=== PATIENT | male | born 1935 | race Caucasian/White ===

== ENCOUNTER 2018-01-05 03:53 | Inpatient (IN) ==
[2018-01-05] MEDS ORDERED: Lidocaine Jelly 6ml 1 APPL/6 ML JEL.PF.APP MM ONE (04:16)
--- NOTE | 2018-01-05 04:46 | Emergency Department Note ---
Disposition Clinical Impression: Acute urinary retention Hematuria Qualifiers: Hematuria type: gross Qualified Code(s): R31.0 - Gross hematuria Disposition: Still a Patient Condition: Good Referrals: Melvin Trujillo DO [Primary Care Provider] - Forms: ED Satisfaction Letter Time of Disposition: 06:59 General Adult HPI - General Chief complaint: ED Urogenital-Male Stated complaint: cant pee Time Seen by Provider: 01/05/18 04:06 Source: patient, family Limitations: no limitations - History of Present Illness HPI Narrative: This is an 82-year-old male who comes to emergency department stating that he was last able to urinate about 11 hours prior to arrival. At that time, the only thing that came out was what appeared to be mostly blood. He was able to produce only a small volume of blood when asked to urinate for sample here. He had one prior episode of hematuria about 3 years ago, but no urinary retention. Pain Scale: 8 - Related Data Home Medications Medication Instructions Recorded Confirmed Aspirin [Lo-Dose Aspirin EC] 81 mg PO DAILY 02/16/16 03/11/16 Atorvastatin [Lipitor] 40 mg PO HS 02/16/16 03/11/16 Clopidogrel [Plavix] 75 mg PO DAILY 02/16/16 03/11/16 Diclofenac Sodium [Voltaren] 75 mg PO DAILY PRN 02/16/16 03/11/16 Fluorouracil [Carac] 30 gm TP BID 02/16/16 03/11/16 Gabapentin [Neurontin] 300 mg PO TID 02/16/16 03/11/16 Lisinopril [Zestril] 10 mg PO DAILY 02/16/16 03/11/16 [place]-3/Dha/Epa/Fish Oil [[place] 3 1 each PO DAILY 02/16/16 03/11/16 500 Softgel] Vit C/Vit E/Lutein/Min/[place]-3 1 each PO DAILY 02/16/16 03/11/16 [Ocuvite Softgel] clonazePAM [Klonopin] 0.5 mg PO BID PRN 02/16/16 03/11/16 Allergies Allergy/AdvReac Type Severity Reaction Status Date / Time ampicillin Allergy Rash Verified 03/11/16 08:01 All systems ED: reviewed and negative except as stated. Genitourinary: Reports: dysuria, hematuria Past Medical History - Past Medical History Medical history: Reports: COPD, coronary artery disease, hyperlipidemia, hypertension, other Surgical history: Reports: angioplasty/stent, herniorrhaphy, orthopedic, other Psychiatric history: Reports: no psych history - Social History Smoking Status: Never smoker Smokeless Tobacco Status: No Alcohol use: Reports: none Drug use: Reports: none Physical Exam - General Limitations: no limitations General appearance: alert, in distress (In moderate distress from abdominal pain and urinary retention) - Head Head exam: atraumatic, normocephalic, normal inspection - Eye Eye exam: Present: normal appearance, PERRL, EOMI - Chest Chest inspection: Present: normal inspection, symmetric chest wall rise - Respiratory Respiratory exam: Present: normal lung sounds bilaterally - Cardiovascular Cardiovascular exam: Present: regular rate, normal rhythm, normal heart sounds - Abdominal Exam Abdominal exam: Present: soft, tenderness (There is mild to moderate suprapubic tenderness). Absent: distention, guarding, rebound, rigidity - Extremities Exam Extremities exam: Present: normal inspection, full ROM. Absent: tenderness, pedal edema - Back Exam Back exam: Absent: CVA tenderness (R), CVA tenderness (L) - Neurological Exam Neurological exam: Present: alert, oriented X3 - Psychiatric Psychiatric exam: Present: normal affect, normal mood - Skin Skin exam: Present: warm, dry, intact, normal color Course Course Narrative: Examined the patient's bladder using bedside ultrasound and measured a bladder volume of 400 mL even though I could not fit the entire bladder on the screen. This is an 82-year-old male who appears to have urinary retention most likely secondary to hematuria. Vital Signs Temperature 97.6 F 01/05/18 03:59 Pulse Rate 81 01/05/18 03:59 Respiratory Rate 12 01/05/18 03:59 Blood Pressure 182/99 01/05/18 03:59 O2 Sat by Pulse Oximetry 99 01/05/18 03:59 Temperature 97.6 F 01/05/18 03:59 Pulse Rate 81 01/05/18 03:59 Respiratory Rate 12 01/05/18 03:59 Blood Pressure 182/99 01/05/18 03:59 O2 Sat by Pulse Oximetry 99 01/05/18 03:59 Oxygen Delivery Oxygen Delivery Room Air Medical Decision Making - [facility] Narrative Medical decision making narrative: This is an 82-year-old male with gross hematuria and urinary retention Nursing placed a Dickerson catheter with release of almost 1 L of darkly bloody urine. Continuous bladder irrigation was set up and run with normal saline. I discussed his case with Dr. Guardado, the on-call urologist, who recommended admission. Patient was signed out to Dr. Monzon at 7 AM - Lab Data Lab results reviewed: Yes I reviewed the patient's lab results. Lab results narrative: CBC was unremarkable BMP showed be human and slightly elevated at 25 UA showed large blood Result diagrams: 01/05/18 05:13 01/05/18 05:13 Lab Results 01/05/18 01/05/18 01/05/18 Range/Units 04:00 05:13 05:13 WBC 4.7 (4.3-11.1) K/mcL RBC 4.36 (4.19-5.50) M/mcL Hgb 14.0 (12.9-16.9) g/dL Hct 41.7 (37.5-50.1) % MCV 95.6 (83.0-100.0) fL MCH 32.1 (28.0-33.3) pg MCHC 33.6 (31.6-35.5) g/dL RDW 12.7 (11.5-14.5) % Plt Count 186 (140-400) K/mcL MPV 10.5 (9.4-12.4) fL Immature Gran % 0.2 (0-4) % Seg Neutrophils % 57.2 % Lymphocytes % 24.7 % Monocytes % 13.1 % Eosinophils % 3.9 % Basophils % 0.9 % Neutrophils # 2.7 (1.6-8.9) K/mcL Lymphocytes # 1.2 (0.6-4.6) K/mcL Monocytes # 0.6 (0.0-1.3) K/mcL Eosinophils # 0.2 (0.0-0.6) K/mcL Basophils # 0.0 (0.0-0.2) K/mcL Sodium 139 (136-145) mEq/L Potassium 4.0 (3.5-5.1) mEq/L Chloride 105 (98-107) mEq/L Carbon Dioxide 25 (23-29) mEq/L BUN 25 H (8-23) mg/dL Creatinine 0.90 (0.70-1.30) mg/dL Est GFR ( Amer) > 60 (> 60) Est GFR (Non-Af Amer) > 60 (> 60) BUN/Creatinine Ratio 28 H (6-26) Glucose 126 H (70-105) mg/dL Calculated Osmolality 294 (280-300) Calcium 9.2 (8.6-10.3) mg/dL Ur Specimen Adequacy PATIENT SVCS MGR Urine Color Red A (Yellow) Urine Clarity Turbid A (Clear) Urine pH 6.5 (5.0-8.0) pH Units Ur Specific [place] < 1.005 L (1.010-1.025) Urine Protein >=300 H (Neg-Trace) mg/dL Urine Glucose (UA) Normal (Normal) mg/dL Urine Ketones Trace H (Negative) mg/dL Urine Blood Large H (Negative) Urine Nitrite Negative (Negative) Urine Bilirubin Negative (Negative) Urine Urobilinogen Normal (Normal) mg/dL Ur Leukocyte Esterase Small H (Negative) Ur Culture Indicated? YES A (NO) Critical Care Time Critical Care Time: No
[2018-01-05 05:00] LABS: Bilirubin,Urine Negative (Negative); Blood,Urine Large (Negative); Color,Urine Red (Yellow); Glucose,Urine (UA) Normal (Normal); Ketones,Urine Trace mg/dL (Negative); Leukocyte Esterase,Urine Small (Negative); Nitrite,Urine Negative (Negative); PH,Urine 6.5 pH Units (5.0-8.0); Protein,Urine >=300 mg/dL (Neg-Trace); Specific Gravity,Urine < 1.005 (1.010-1.025); Urobilinogen,Urine Normal (Normal)
[2018-01-05 05:01] LABS: Clarity,Urine Turbid (Clear)
[2018-01-05 05:38] LABS: Basophils % 0.9 %; Eosinophils # 0.2 K/mcL (0.0-0.6); Eosinophils % 3.9 %; Hematocrit 41.7 % (37.5-50.1); Immature Granulocytes % 0.2 % (0-4); Lymphocytes # 1.2 K/mcL (0.6-4.6); Lymphocytes % 24.7 %; Mean Corpuscular HGB Conc 33.6 g/dL (31.6-35.5); Mean Corpuscular Hemoglobin 32.1 pg (28.0-33.3); Mean Corpuscular Volume 95.6 fL (83.0-100.0); Mean Platelet Volume 10.5 fL (9.4-12.4); Monocytes # 0.6 K/mcL (0.0-1.3); Monocytes % 13.1 %; Neutrophils # 2.7 K/mcL (1.6-8.9); Platelet Count 186 K/mcL (140-400); Red Blood Count 4.36 M/mcL (4.19-5.50); Red Cell Distribution Width 12.7 % (11.5-14.5); Segmented Neutrophils % 57.2 %
[2018-01-05 05:55] LABS: BUN/Creatinine Ratio 28 (6-26); Blood Urea Nitrogen 25 mg/dL (8-23); Calcium 9.2 mg/dL (8.6-10.3); Carbon Dioxide 25 mEq/L (23-29); Chloride 105 mEq/L (98-107); Glucose 126 mg/dL (70-105); Osmolality,Calculated 294 (280-300); Sodium 139 mEq/L (136-145); eGFR For Non-African Americans > 60 (> 60)
--- NOTE | 2018-01-05 07:27 | Emergency Department Note ---
Disposition Clinical Impression: Acute urinary retention Hematuria Qualifiers: Hematuria type: gross Qualified Code(s): R31.0 - Gross hematuria Disposition: Admitted As Inpatient Condition: Good Referrals: Melvin Trujillo DO [Primary Care Provider] - Forms: ED Satisfaction Letter General Adult HPI - General Chief complaint: ED Urogenital-Male Stated complaint: cant pee Time Seen by Provider: 01/05/18 04:06 Source: patient, family Limitations: no limitations - History of Present Illness Pain Scale: 8 - Related Data Home Medications Medication Instructions Recorded Confirmed Aspirin [Lo-Dose Aspirin EC] 81 mg PO DAILY 02/16/16 03/11/16 Atorvastatin [Lipitor] 40 mg PO HS 02/16/16 03/11/16 Clopidogrel [Plavix] 75 mg PO DAILY 02/16/16 03/11/16 Diclofenac Sodium [Voltaren] 75 mg PO DAILY PRN 02/16/16 03/11/16 Fluorouracil [Carac] 30 gm TP BID 02/16/16 03/11/16 Gabapentin [Neurontin] 300 mg PO TID 02/16/16 03/11/16 Lisinopril [Zestril] 10 mg PO DAILY 02/16/16 03/11/16 [place]-3/Dha/Epa/Fish Oil [[place] 3 1 each PO DAILY 02/16/16 03/11/16 500 Softgel] Vit C/Vit E/[place]utein/Min/[place]-3 1 each PO DAILY 02/16/16 03/11/16 [Ocuvite Softgel] clonazePAM [Klonopin] 0.5 mg PO BID PRN 02/16/16 03/11/16 Allergies Allergy/AdvReac Type Severity Reaction Status Date / Time ampicillin Allergy Rash Verified 03/11/16 08:01 Genitourinary: Reports: dysuria, hematuria Past Medical History - Past Medical History Medical history: Reports: COPD, coronary artery disease, hyperlipidemia, hypertension, other Surgical history: Reports: angioplasty/stent, herniorrhaphy, orthopedic, other Psychiatric history: Reports: no psych history - Social History Smoking Status: Never smoker Smokeless Tobacco Status: No Alcohol use: Reports: none Drug use: Reports: none Physical Exam - General Limitations: no limitations General appearance: alert, in distress (In moderate distress from abdominal pain and urinary retention) Course Course Narrative: Patient signed out from day shift team. Please see their documentation for details. In brief 82-year-old male who presents with acute urinary retention in the setting of hematuria. This is happened once to come in the past a few years ago. He is on Plavix for cardiac stents. The patient was found to be retained here was 400 mL. He had reportedly 1 L of grossly bloody urine once Dickerson was placed. Labs are unremarkable. Urinalysis stable. Case discussed with urology. Plan to admit. Vital Signs Temperature 97.6 F 01/05/18 03:59 Pulse Rate 81 01/05/18 03:59 Respiratory Rate 12 01/05/18 03:59 Blood Pressure 182/99 01/05/18 03:59 O2 Sat by Pulse Oximetry 99 01/05/18 03:59 Temperature 97.6 F 01/05/18 03:59 Pulse Rate 81 01/05/18 03:59 Respiratory Rate 12 01/05/18 03:59 Blood Pressure 182/99 01/05/18 03:59 O2 Sat by Pulse Oximetry 99 01/05/18 03:59 Oxygen Delivery Oxygen Delivery Room Air Medical Decision Making - Lab Data Lab results reviewed: Yes I reviewed the patient's lab results. Result diagrams: 01/05/18 05:13 01/05/18 05:13 Lab Results 01/05/18 01/05/18 01/05/18 Range/Units 04:00 05:13 05:13 WBC 4.7 (4.3-11.1) K/mcL RBC 4.36 (4.19-5.50) M/mcL Hgb 14.0 (12.9-16.9) g/dL Hct 41.7 (37.5-50.1) % MCV 95.6 (83.0-100.0) fL MCH 32.1 (28.0-33.3) pg MCHC 33.6 (31.6-35.5) g/dL RDW 12.7 (11.5-14.5) % Plt Count 186 (140-400) K/mcL MPV 10.5 (9.4-12.4) fL Immature Gran % 0.2 (0-4) % Seg Neutrophils % 57.2 % Lymphocytes % 24.7 % Monocytes % 13.1 % Eosinophils % 3.9 % Basophils % 0.9 % Neutrophils # 2.7 (1.6-8.9) K/mcL Lymphocytes # 1.2 (0.6-4.6) K/mcL Monocytes # 0.6 (0.0-1.3) K/mcL Eosinophils # 0.2 (0.0-0.6) K/mcL Basophils # 0.0 (0.0-0.2) K/mcL Sodium 139 (136-145) mEq/L Potassium 4.0 (3.5-5.1) mEq/L Chloride 105 (98-107) mEq/L Carbon Dioxide 25 (23-29) mEq/L BUN 25 H (8-23) mg/dL Creatinine 0.90 (0.70-1.30) mg/dL Est GFR ( Amer) > 60 (> 60) Est GFR (Non-Af Amer) > 60 (> 60) BUN/Creatinine Ratio 28 H (6-26) Glucose 126 H (70-105) mg/dL Calculated Osmolality 294 (280-300) Calcium 9.2 (8.6-10.3) mg/dL Ur Specimen Adequacy NURSES SUPERINTENDENT Urine Color Red A (Yellow) Urine Clarity Turbid A (Clear) Urine pH 6.5 (5.0-8.0) pH Units Ur Specific [place] < 1.005 L (1.010-1.025) Urine Protein >=300 H (Neg-Trace) mg/dL Urine Glucose (UA) Normal (Normal) mg/dL Urine Ketones Trace H (Negative) mg/dL Urine Blood Large H (Negative) Urine Nitrite Negative (Negative) Urine Bilirubin Negative (Negative) Urine Urobilinogen Normal (Normal) mg/dL Ur Leukocyte Esterase Small H (Negative) Ur Culture Indicated? YES A (NO) Jj - Jj Situation: Demographics, MOA Background: Presenting Complaint, Relevant PMH, Meds, & Allergies Assessment: Course and respsone to treatment, Exam Concerns, Patient/Family Expectation, Pertinant Lab Results Recommendation: Barrier(s) to disposition, Recommendation based on pending studies, treatments, or consults S.B.APretty Report Given to: Dr. Deric Gardner Repor Time: 07:34
--- NOTE | 2018-01-05 07:31 | Emergency Department Note ---
Disposition Clinical Impression: Acute urinary retention Hematuria Qualifiers: Hematuria type: gross Qualified Code(s): R31.0 - Gross hematuria Disposition: Still a Patient Condition: Good Referrals: Melvin Trujillo DO [Primary Care Provider] - Forms: ED Satisfaction Letter General Adult HPI - General Chief complaint: ED Urogenital-Male Stated complaint: cant pee Time Seen by Provider: 01/05/18 04:06 Source: patient, family Limitations: no limitations - History of Present Illness Pain Scale: 8 - Related Data Home Medications Medication Instructions Recorded Confirmed Aspirin [Lo-Dose Aspirin EC] 81 mg PO DAILY 02/16/16 03/11/16 Atorvastatin [Lipitor] 40 mg PO HS 02/16/16 03/11/16 Clopidogrel [Plavix] 75 mg PO DAILY 02/16/16 03/11/16 Diclofenac Sodium [Voltaren] 75 mg PO DAILY PRN 02/16/16 03/11/16 Fluorouracil [Carac] 30 gm TP BID 02/16/16 03/11/16 Gabapentin [Neurontin] 300 mg PO TID 02/16/16 03/11/16 Lisinopril [Zestril] 10 mg PO DAILY 02/16/16 03/11/16 [place]-3/Dha/Epa/Fish Oil [[place] 3 1 each PO DAILY 02/16/16 03/11/16 500 Softgel] Vit C/Vit E/Lutein/Min/[place]-3 1 each PO DAILY 02/16/16 03/11/16 [Ocuvite Softgel] clonazePAM [Klonopin] 0.5 mg PO BID PRN 02/16/16 03/11/16 Allergies Allergy/AdvReac Type Severity Reaction Status Date / Time ampicillin Allergy Rash Verified 03/11/16 08:01 Genitourinary: Reports: dysuria, hematuria Past Medical History - Past Medical History Medical history: Reports: COPD, coronary artery disease, hyperlipidemia, hypertension, other Surgical history: Reports: angioplasty/stent, herniorrhaphy, orthopedic, other Psychiatric history: Reports: no psych history - Social History Smoking Status: Never smoker Smokeless Tobacco Status: No Alcohol use: Reports: none Drug use: Reports: none Physical Exam - General Limitations: no limitations General appearance: alert, in distress (In moderate distress from abdominal pain and urinary retention) Course Vital Signs Temperature 97.6 F 01/05/18 03:59 Pulse Rate 81 01/05/18 03:59 Respiratory Rate 12 01/05/18 03:59 Blood Pressure 182/99 01/05/18 03:59 O2 Sat by Pulse Oximetry 99 01/05/18 03:59 Temperature 97.6 F 01/05/18 03:59 Pulse Rate 81 01/05/18 03:59 Respiratory Rate 12 01/05/18 03:59 Blood Pressure 182/99 01/05/18 03:59 O2 Sat by Pulse Oximetry 99 01/05/18 03:59 Oxygen Delivery Oxygen Delivery Room Air Medical Decision Making - Lab Data Result diagrams: 01/05/18 05:13 01/05/18 05:13 Lab Results 01/05/18 01/05/18 01/05/18 Range/Units 04:00 05:13 05:13 WBC 4.7 (4.3-11.1) K/mcL RBC 4.36 (4.19-5.50) M/mcL Hgb 14.0 (12.9-16.9) g/dL Hct 41.7 (37.5-50.1) % MCV 95.6 (83.0-100.0) fL MCH 32.1 (28.0-33.3) pg MCHC 33.6 (31.6-35.5) g/dL RDW 12.7 (11.5-14.5) % Plt Count 186 (140-400) K/mcL MPV 10.5 (9.4-12.4) fL Immature Gran % 0.2 (0-4) % Seg Neutrophils % 57.2 % Lymphocytes % 24.7 % Monocytes % 13.1 % Eosinophils % 3.9 % Basophils % 0.9 % Neutrophils # 2.7 (1.6-8.9) K/mcL Lymphocytes # 1.2 (0.6-4.6) K/mcL Monocytes # 0.6 (0.0-1.3) K/mcL Eosinophils # 0.2 (0.0-0.6) K/mcL Basophils # 0.0 (0.0-0.2) K/mcL Sodium 139 (136-145) mEq/L Potassium 4.0 (3.5-5.1) mEq/L Chloride 105 (98-107) mEq/L Carbon Dioxide 25 (23-29) mEq/L BUN 25 H (8-23) mg/dL Creatinine 0.90 (0.70-1.30) mg/dL Est GFR ( Amer) > 60 (> 60) Est GFR (Non-Af Amer) > 60 (> 60) BUN/Creatinine Ratio 28 H (6-26) Glucose 126 H (70-105) mg/dL Calculated Osmolality 294 (280-300) Calcium 9.2 (8.6-10.3) mg/dL Ur Specimen Adequacy RN RECOVERY Urine Color Red A (Yellow) Urine Clarity Turbid A (Clear) Urine pH 6.5 (5.0-8.0) pH Units Ur Specific [place] < 1.005 L (1.010-1.025) Urine Protein >=300 H (Neg-Trace) mg/dL Urine Glucose (UA) Normal (Normal) mg/dL Urine Ketones Trace H (Negative) mg/dL Urine Blood Large H (Negative) Urine Nitrite Negative (Negative) Urine Bilirubin Negative (Negative) Urine Urobilinogen Normal (Normal) mg/dL Ur Leukocyte Esterase Small H (Negative) Ur Culture Indicated? YES A (NO) Attestation Statement - Attestation Attestation: Care assumed from Dr. singh at 7 AM pending admission to the medicine service. Dr. singh had previously spoken with urology on-call due to gross hematuria. The patient received continuous bladder irrigation. Gross hematuria identified on exam. Labs reviewed by me. Patient appears in no acute distress
--- NOTE | 2018-01-05 09:39 | Internal Med History&Physical ---
Date of Encounter: 01/05/18 Time of Encounter: 09:20 Internal Medicine - H&P: HPI Chief complaint: Hematuria Admitted From: Emergency Dept Plans for Post Hospital Care: Home History of present illness: Mr. Mao is a 82 year old male patient with a history of BPH, prior kidney stones, coronary artery disease status post stents on aspirin and Plavix presented to the ER with complaints of hematuria. Patient reports that the symptoms started yesterday. He had blood in his urine and this morning he was unable to be so he came to the ER. A Dickerson catheter was placed in the ER and since then patient has had ced blood in his urine. He reports that he did have some pain and dysuria on the days prior to onset of hematuria. He denies any abdominal pain. No nausea or vomiting. No recent urologic procedure. No fevers or chills. No dizziness or lightheadedness. Past Med Surg Social Fam HX - Past Medical History Medical history: COPD, coronary artery disease, hyperlipidemia, hypertension, other Additional medical history: Irregular heartbeat, kidney stones Psychiatric history: no psych history - Past Surgical History Surgical History: angioplasty/stent, herniorrhaphy, orthopedic, other - Social History Smoking Status: Never smoker Smokeless Tobacco Status: No Alcohol use: none Drug use: none - Additional Family History Additional family history: Family history reviewed and found to be noncontributory at this time Internal Medicine - H&P: Meds Aspirin [Lo-Dose Aspirin EC] 81 mg PO DAILY 02/16/16 [History] Clopidogrel [Plavix] 75 mg PO DAILY 02/16/16 [History] Diclofenac Sodium [Voltaren] 75 mg PO BID PRN 02/16/16 [History] Fluorouracil [Carac] 30 gm TP BID 02/16/16 [History] Gabapentin [Neurontin] 300 mg PO TID 02/16/16 [History] Lisinopril [Zestril] 20 mg PO DAILY 02/16/16 [History] [place]-3/Dha/Epa/Fish Oil [[place] 3 500 Softgel] 1 each PO DAILY 02/16/16 [History ] Vit C/Vit E/Lutein/Min/[place]-3 [Ocuvite Softgel] 1 each PO DAILY 02/16/16 [ History] Atorvastatin Calcium [Lipitor] 20 mg PO DAILY 01/05/18 [History] Cyclobenzaprine HCl 5 mg PO TID PRN 01/05/18 [History] Silodosin [Rapaflo] 8 mg PO DAILY 01/05/18 [History] Testosterone [Androgel] 01/05/18 [History] 3 Allergy/AdvReac Type Severity Reaction Status Date / Time ampicillin Allergy Rash Verified 01/05/18 07:44 All Systems PM: A 10-system review of systems was performed and is negative for pertinent findings except as documented above in the HPI. - Constitutional Constitutional: no chills, no fever(s), no night sweats - EENT Eyes: no change in vision, no discharge, no pain, no photophobia Ears: no ear discharge, no ear pain, no tinnitus Nose, mouth and throat: no dysphagia, no nasal discharge, no neck pain, no sore throat - Cardiovascular Cardiovascular ROS IM: no chest pain, no diaphoresis, no dyspnea, no lightheadedness, no palpitations, no syncope - Respiratory Respiratory: no cough, no dyspnea, no wheezing, no excessive phlegm production - Gastrointestinal Gastrointestinal: no abdominal pain, no diarrhea, no hematemesis, no hematochezia, no melena, no nausea, no vomiting - Genitourinary Genitourinary ROS male: difficulty urinating, hematuria, urinary hesitancy - Musculoskeletal Musculoskeletal ROS IM: no numbness, no tingling - Integumentary Integumentary IM: no rash, no unusual bruising - Neurological Neurological ROS: no confusion, no convulsions, no focal weakness, no numbness, no tingling, no tremor(s) - Hematologic/Lymphatic Hematologic/Lymphatic: no easy bruising - Constitutional Vitals: Temp Pulse Resp BP Pulse Ox 97.7 F 81 16 161/90 95 01/05/18 09:24 01/05/18 09:24 01/05/18 09:24 01/05/18 09:24 01/05/18 09:24 General appearance: Present: cooperative, A&O X 3, pleasant, answers questions appropriately Exam: General: Patient is alert, no acute distress, oriented x 3 Head: atraumatic, normocephalic, Eye: normal appearance, PERRL, no scleral icterus, no conjunctival injection Neck: normal inspection, trachea midline, full ROM, no carotid bruits Chest: normal inspection, symmetric chest rise Respiratory: Good respiratory effort. Normal breath sounds. No wheezing or crackles. Cardiovascular: Regular rate and rhythm. s1 and s2 normal No clicks, rubs, gallops, or murmurs. No pedal edema Abdomen: Abdomen is soft, nontender. Bowel sounds are present, Dickerson catheter in place Musculoskeletal: Spontaneously moving all extremities Skin: warm, dry, intact. Neuro: Alert oriented x 3 normal cranial nerves, no focal deficits Psych: Patient's affect is normal Internal Med - H&P Results - Labs CBC & Chem 7: 01/05/18 05:13 01/05/18 05:13 - Assessment and plan (1) Hematuria Current Visit: Yes Status: Acute Assessment and plan: Patient with gross hematuria. Urology consult in place. Dickerson catheter in place. Bladder irrigation started. Monitor hemoglobin levels. We will hold aspirin and Plavix for now. Avoid medical anticoagulation. Moderate risk for complications. Qualifiers: Hematuria type: gross Qualified Code(s): R31.0 - Gross hematuria (2) Acute urinary retention Current Visit: Yes Status: Acute Assessment and plan: Likely due to blood clots from hematuria. Now resolved after placement of Dickerson catheter. Urology consult in progress. (3) Coronary artery disease Current Visit: Yes Status: Chronic Assessment and plan: Patient takes aspirin, Plavix and statin. We will hold aspirin and Plavix for now due to acute bleed. Once bleeding improves, may resume his medications. Qualifiers: Coronary Disease-Associated Artery/Lesion type: [place] artery [place] vs. transplanted heart: [place] heart Associated angina: without angina Qualified Code(s): I25.10 - Atherosclerotic heart disease of [place] coronary artery without angina pectoris - Time Spent With Patient Total time spent is greater than 50% in coordination of care (as documented) at patient's floor/unit and/or counseling patient:
[2018-01-05] MEDS ORDERED: Naloxone 0.4 MG/ML INJ IVP PRN (09:42)
--- NOTE | 2018-01-05 10:23 | Urology - Consult Note ---
Date of Encounter: 01/05/18 Time of Encounter: 10:22 - Assessment and Plan (1) Acute urinary retention Current Visit: Yes Status: Acute Assessment and plan: 82-year-old man with gross hematuria and clot retention is seen in consultation. He has an 18 Norwegian 3-way catheter. He is on irrigation and his urine is clearing. We will try to wean off the irrigation and see if his urine remains clear. He may require hand irrigation. If bleeding does not resolve or he develops recurrent clots, he may require a cystoscopy in the operating room with clot evacuation and fulguration. I will give him a trial of conservative management. We will see if his urine clears with just irrigation alone and try to hold the Plavix. Urology will follow along. (2) Hematuria Current Visit: Yes Status: Acute Qualifiers: Hematuria type: gross Qualified Code(s): R31.0 - Gross hematuria Urology CN:HPI Consult date: 01/05/18 Reason for consult Urology: Gross Hematuria History of present illness: 82-year-old man presents with concern for gross hematuria. This started yesterday. He had difficulty voiding with some blood clots. He had further trouble urinating was not able to empty at all. He came to the emergency department. He was having suprapubic pain which was dull and radiated to the penis. A Dickerson catheter was placed. Bloody urine returned. He was started on bladder irrigation and was admitted. He reports that he had a greenlight laser photo vaporization of the prostate. This was done about 8-10 years ago. He also has a penile implant. He denies any family history of prostate cancer. He has a history of cardiac stents and takes aspirin as well as Plavix. He reports that he is having some constipation and has been having to strain to move his bowels. Past Med Surg Social Fam HX - Past Medical History Medical history: COPD, coronary artery disease, hyperlipidemia, hypertension, other Additional medical history: Irregular heartbeat, kidney stones Psychiatric history: no psych history - Past Surgical History Surgical History: angioplasty/stent, herniorrhaphy, orthopedic, other - Social History Smoking Status: Never smoker Smokeless Tobacco Status: No Alcohol use: none Drug use: none - Family History Father Hx Family Genitourinary Disorders: No (No prostate cancer.) Medications and Allergies Aspirin [Lo-Dose Aspirin EC] 81 mg PO DAILY 11/15/16 [History] Clopidogrel [Plavix] 75 mg PO DAILY 02/16/16 [History] Diclofenac Sodium [Voltaren] 75 mg PO BID PRN 02/16/16 [History] Fluorouracil [Carac] 30 gm TP BID 02/16/16 [History] Gabapentin [Neurontin] 300 mg PO TID 02/16/16 [History] Lisinopril [Zestril] 20 mg PO DAILY 02/16/16 [History] [place]-3/Dha/Epa/Fish Oil [[place] 3 500 Softgel] 1 each PO DAILY 02/16/16 [History ] Vit C/Vit E/Lutein/Min/[place]-3 [Ocuvite Softgel] 1 each PO DAILY 02/16/16 [ History] Atorvastatin Calcium [Lipitor] 20 mg PO DAILY 01/05/18 [History] Cyclobenzaprine HCl 5 mg PO TID PRN 01/05/18 [History] Silodosin [Rapaflo] 8 mg PO DAILY 01/05/18 [History] Testosterone [Androgel] 2 pump TD DAILY 01/05/18 [History] 3 Allergy/AdvReac Type Severity Reaction Status Date / Time ampicillin Allergy Rash Verified 01/05/18 07:44 Review of Systems - Constitutional no chills, no fever(s) - EENT Nose, mouth and throat: no dizziness - Cardiovascular no chest pain - Respiratory no dyspnea - Gastrointestinal no nausea, no vomiting - Genitourinary hematuria, no flank pain - Musculoskeletal no back pain - Integumentary no erythema, no rash - Neurological no weakness - Psychiatric no suicidal ideation - Hematologic/Lymphatic no easy bleeding - Allergic/Immunologic no wheezing Exam Initial Vital Signs Temp Pulse Resp BP Pulse Ox 97.6 F 81 12 182/99 99 01/05/18 03:59 01/05/18 03:59 01/05/18 03:59 01/05/18 03:59 01/05/18 03:59 - General physical appearance Present: well developed, well nourished, no distress - Eyes Absent: icteric - ENT Present: normal nares - Neck Present: trachea midline - Respiratory Present: normal respiratory effort - Cardiovascular Cardiovascular exam IM: RRR - Abdomen Abdomen: Present: soft - Genitourinary normal penis with no external lesions, other ([address] Irrigation is running fast with clear to light pink urine) - Integumentary Present: no rash - Neurologic Present: normal coordination - Musculoskeletal Present: normal gait Urology Results - Labs 01/05/18 05:13 01/05/18 05:13 Abnormal lab results BUN 25 mg/dL (8-23) H 01/05/18 05:13 BUN/Creatinine Ratio 28 (6-26) H 01/05/18 05:13 Glucose 126 mg/dL (70-105) H 01/05/18 05:13 Urine Color Red (Yellow) A 01/05/18 04:00 Urine Clarity Turbid (Clear) A 01/05/18 04:00 Ur Specific [place] < 1.005 (1.010-1.025) L 01/05/18 04:00 Urine Protein >=300 mg/dL (Neg-Trace) H 01/05/18 04:00 Urine Ketones Trace mg/dL (Negative) H 01/05/18 04:00 Urine Blood Large (Negative) H 01/05/18 04:00 Ur Leukocyte Esterase Small (Negative) H 01/05/18 04:00 Ur Culture Indicated? YES (NO) A 01/05/18 04:00 All other labs normal. Consult Discharge Plan - Plan Referrals: Melvin Trujillo DO [Primary Care Provider] -
[2018-01-05] MEDS: FLUOROURACIL 30 GM TP SCH ×2 (12:25→22:17)
[2018-01-05] MEDS: Lisinopril 20 MG TABLET PO SCH ×2 (12:25→15:35)
[2018-01-05] MEDS: Gabapentin 300 MG CAPSULE PO SCH ×4 (12:25→20:29)
[2018-01-05] MEDS: EPA PO SCH (12:27)
[2018-01-05] MEDS: DHA PO SCH (12:27)
[2018-01-05] MEDS: FISH OIL PO SCH (12:27)
[2018-01-05] MEDS: OMEGA PO SCH (12:27)
[2018-01-05] MEDS: Diclofenac Sodium 75 MG TABLET PO PRN (15:42)
[2018-01-06] MEDS: Diclofenac Sodium 75 MG TABLET PO PRN (00:14)
[2018-01-06 05:16] LABS: Basophils % 0.6 %; Eosinophils # 0.1 K/mcL (0.0-0.6); Eosinophils % 2.1 %; Hematocrit 41.3 % (37.5-50.1); Hemoglobin 13.7 g/dL (12.9-16.9); Immature Granulocytes % 0.3 % (0-4); Lymphocytes # 1.1 K/mcL (0.6-4.6); Lymphocytes % 17.9 %; Mean Corpuscular HGB Conc 33.2 g/dL (31.6-35.5); Mean Corpuscular Volume 96.5 fL (83.0-100.0); Mean Platelet Volume 10.6 fL (9.4-12.4); Monocytes # 0.7 K/mcL (0.0-1.3); Monocytes % 10.5 %; Neutrophils # 4.3 K/mcL (1.6-8.9); Platelet Count 171 K/mcL (140-400); Red Blood Count 4.28 M/mcL (4.19-5.50); Segmented Neutrophils % 68.6 %
[2018-01-06 05:32] LABS: BUN/Creatinine Ratio 21 (6-26); Blood Urea Nitrogen 21 mg/dL (8-23); Calcium 9.1 mg/dL (8.6-10.3); Carbon Dioxide 28 mEq/L (23-29); Chloride 107 mEq/L (98-107); Glucose 135 mg/dL (70-105); Osmolality,Calculated 295 (280-300); Sodium 140 mEq/L (136-145); eGFR For Non-African Americans > 60 (> 60)
--- NOTE | 2018-01-06 07:59 | Anesthesia Evaluation PreOp ---
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 HX Other Medical History: Other (HO BPH POST GREENLIGHT LIGHT VAPOIZATION 10 YRS AGO) Anesthesia History: No Prior Anesthetic Complications, Past Anesthesia (HERNIA, ORTHO) Alcohol Use: none Drug use: none Medications and Allergies Aspirin [Lo-Dose Aspirin EC] 81 mg PO DAILY 02/16/16 [History] Clopidogrel [Plavix] 75 mg PO DAILY 02/16/16 [History] Diclofenac Sodium [Voltaren] 75 mg PO BID PRN 02/16/16 [History] Fluorouracil [Carac] 30 gm TP BID 02/16/16 [History] Gabapentin [Neurontin] 300 mg PO TID 02/16/16 [History] Lisinopril [Zestril] 20 mg PO DAILY 02/16/16 [History] [place]-3/Dha/Epa/Fish Oil [[place] 3 500 Softgel] 1 each PO DAILY 02/16/16 [History ] Vit C/Vit E/Lutein/Min/[place]-3 [Ocuvite Softgel] 1 each PO DAILY 02/16/16 [ History] Atorvastatin Calcium [Lipitor] 20 mg PO DAILY 01/05/18 [History] Cyclobenzaprine HCl 5 mg PO TID PRN 01/05/18 [History] Silodosin [Rapaflo] 8 mg PO DAILY 01/05/18 [History] Testosterone [Androgel] 2 pump TD DAILY 01/05/18 [History] 3 Allergy/AdvReac Type Severity Reaction Status Date / Time ampicillin Allergy Rash Verified 01/05/18 07:44 - Meds/Allergy Pre-op Review Medications Reviewed: Yes Allergies Reviewed: Yes Beta Blockers on Current Med List: No Anesthesia Results - Labs 01/06/18 04:59 01/06/18 04:59 Laboratory Last Values WBC 6.3 K/mcL (4.3-11.1) 01/06/18 04:59 RBC 4.28 M/mcL (4.19-5.50) 01/06/18 04:59 Hgb 13.7 g/dL (12.9-16.9) 01/06/18 04:59 Hct 41.3 % (37.5-50.1) 01/06/18 04:59 MCV 96.5 fL (83.0-100.0) 01/06/18 04:59 MCH 32.0 pg (28.0-33.3) 01/06/18 04:59 MCHC 33.2 g/dL (31.6-35.5) 01/06/18 04:59 RDW 13.0 % (11.5-14.5) 01/06/18 04:59 Plt Count 171 K/mcL (140-400) 01/06/18 04:59 MPV 10.6 fL (9.4-12.4) 01/06/18 04:59 Immature Gran % 0.3 % (0-4) 01/06/18 04:59 Seg Neutrophils % 68.6 % 01/06/18 04:59 Lymphocytes % 17.9 % 01/06/18 04:59 Monocytes % 10.5 % 01/06/18 04:59 Eosinophils % 2.1 % 01/06/18 04:59 Basophils % 0.6 % 01/06/18 04:59 Neutrophils # 4.3 K/mcL (1.6-8.9) 01/06/18 04:59 Lymphocytes # 1.1 K/mcL (0.6-4.6) 01/06/18 04:59 Monocytes # 0.7 K/mcL (0.0-1.3) 01/06/18 04:59 Eosinophils # 0.1 K/mcL (0.0-0.6) 01/06/18 04:59 Basophils # 0.0 K/mcL (0.0-0.2) 01/06/18 04:59 PT 11.0 Seconds (9.4-12.1) 01/05/18 07:33 INR 1.0 01/05/18 07:33 Sodium 140 mEq/L (136-145) 01/06/18 04:59 Potassium 4.0 mEq/L (3.5-5.1) 01/06/18 04:59 Chloride 107 mEq/L (98-107) 01/06/18 04:59 Carbon Dioxide 28 mEq/L (23-29) 01/06/18 04:59 BUN 21 mg/dL (8-23) 01/06/18 04:59 Creatinine 1.02 mg/dL (0.70-1.30) 01/06/18 04:59 Est GFR ( Amer) > 60 (> 60) 01/06/18 04:59 Est GFR (Non-Af Amer) > 60 (> 60) 01/06/18 04:59 BUN/Creatinine Ratio 21 (6-26) 01/06/18 04:59 Glucose 135 mg/dL (70-105) H 01/06/18 04:59 Calculated Osmolality 295 (280-300) 01/06/18 04:59 Calcium 9.1 mg/dL (8.6-10.3) 01/06/18 04:59 Ur Specimen Adequacy COMPUTER SECURITY SPECIALIST 01/05/18 04:00 Urine Color Red (Yellow) A 01/05/18 04:00 Urine Clarity Turbid (Clear) A 01/05/18 04:00 Urine pH 6.5 pH Units (5.0-8.0) 01/05/18 04:00 Ur Specific [place] < 1.005 (1.010-1.025) L 01/05/18 04:00 Urine Protein >=300 mg/dL (Neg-Trace) H 01/05/18 04:00 Urine Glucose (UA) Normal mg/dL (Normal) 01/05/18 04:00 Urine Ketones Trace mg/dL (Negative) H 01/05/18 04:00 Urine Blood Large (Negative) H 01/05/18 04:00 Urine Nitrite Negative (Negative) 01/05/18 04:00 Urine Bilirubin Negative (Negative) 01/05/18 04:00 Urine Urobilinogen Normal mg/dL (Normal) 01/05/18 04:00 Ur Leukocyte Esterase Small (Negative) H 01/05/18 04:00 Ur Culture Indicated? YES (NO) A 01/05/18 04:00 Blood Type A POSITIVE 01/05/18 07:33 Antibody Screen NEGATIVE 01/05/18 07:33 - Imaging EKG: pending Additional studies: STRESS TEST 01/2015: Gated EF = 73%. There is a moderate intensity, partially reversible inferior defect possibly due to ischemia. [facility] 01/2015: Impressions: Single vessel coronary artery disease. Previously stented RCA patent. The left ventricle is normal and has normal contractility EF 65% LV Ventriculography Ejection Method: LV Gram Ejection Fraction: 65% Wall Motion: BARRY Anterobasal Normal Anterolateral Normal Apical: Normal Inferoapical Normal Inferobasal Normal Coronary Dominance: right Lesion Findings/Interventions * Left Main Coronary Artery There is a 20% stenosis in the LMCA. The lesion has a MUNIR flow of 3. * Left Anterior Descending There is a 25% stenosis in the Proximal LAD. The lesion has a MUNIR flow of 3 and has severe calcification noted. * Circumflex There is a 20% stenosis in the Proximal Circumflex. The lesion has a MUNIR flow of 3. * Right Coronary Artery The Mid RCA has patent stents present from a previous procedure. There is a 40% stenosis in the Proximal RCA. The lesion has a MUNIR flow of 3. There is a 20% in stent stenosis in the Mid RCA. The lesion has a UMNIR flow of 3. There is a 20% stenosis in the Distal RCA. The lesion has a MUNIR flow of 3. Anesthesia Exam Vital Signs/O2 Sat, Most Current Temp Pulse Resp BP Pulse Ox 97.7 F 82 16 130/82 92 01/06/18 07:51 01/06/18 07:51 01/06/18 07:51 01/06/18 07:51 01/06/18 07:51 HEIGHT 1.75 m WEIGHT 79 kg BMI 26 - HEENT Mallampati: II Teeth: Missing - Cardiac Rhythm: Regular - Pulmonary Breath Sounds: bilateral Clear Respiratory Effort: Symmetrical - Additional Findings INPATIENTActive Medications Atorvastatin Calcium (Lipitor) 20 mg PO DAILY [facility] Stop: 07/07/18 12:16 Last Admin: 01/05/18 15:34 Dose: Not Given Cyclobenzaprine HCl (Flexeril) 5 mg PO TID PRN PRN Reason: Muscle Pain Last Admin: 01/06/18 00:14 Dose: 5 mg Diclofenac Sodium (Voltaren) 75 mg PO BID PRN PRN Reason: Pain Stop: 07/07/18 09:45 Last Admin: 01/06/18 00:14 Dose: 75 mg Gabapentin (Neurontin) 300 mg PO TID [facility] Stop: 07/07/18 12:16 Last Admin: 01/05/18 20:29 Dose: 300 mg Levofloxacin/Dextrose (Levaquin Premix 500mg/100ml) 500 mg in 100 mls @ 100 mls /hr IVPB Q24H KAREN PRN Reason: Protocol Stop: 07/08/18 08:01 Lisinopril (Zestril) 20 mg PO DAILY KAREN PRN Reason: Protocol Stop: 07/07/18 12:16 Last Admin: 01/05/18 15:35 Dose: Not Given Naloxone HCl (Narcan) 0.4 mg IVP Q2MIN PRN PRN Reason: SEE COMMENTS Stop: 07/07/18 09:43 Pharmacy Profile Note (Patient Taking Own Medication) 0 each TP BID [facility] Stop: 07/07/18 21:01 Last Admin: 01/05/18 22:17 Dose: Not Given Pharmacy Profile Note (Patient Taking Own Medication) 0 each PO DAILY [facility] Stop: 07/08/18 09:01 Last Admin: 01/05/18 12:27 Dose: Not Given Tamsulosin HCl (Flomax) 0.4 mg PO DAILY [facility] Stop: 07/07/18 12:16 Last Admin: 01/05/18 15:34 Dose: Not Given Anesthesia Assess/Plan ASA Score: 3 Modified Prakash Scale for Level of Consciousness: Cooperative, oriented, and tranquil Anesthetic Plan: General Monitoring Plan: Standard Monitors Recovery Plan: PACU Anes Supervising Prov Stmt: Patient informed and consented. Risks, benefits, and alternatives discussed. Patient wishes to proceed.
[2018-01-06] MEDS ORDERED: Levofloxacin 500 MG/100 ML 500 MG/100 ML BAG IVPB SCH (08:00)
--- NOTE | 2018-01-06 08:04 | Urology Progress Note ---
Date of Encounter: 01/06/18 Time of Encounter: 08:01 - Assessment and Plan (1) Acute urinary retention Current Visit: Yes Status: Acute (2) Hematuria Current Visit: Yes Status: Acute Assessment and plan: 82-year-old man with a history of gross hematuria. We discussed options with him today. I offered to increase the size of his three-way catheter to better irrigate his bladder. He is concerned about his ability to tolerate this while awake. 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 He would prefer to go the nonoperative approach. He was informed of the risks of the surgery which include but are not limited to bleeding, infection, injury to other structures, need for further procedures, and the risk of anesthesia. He is willing to proceed. Qualifiers: Hematuria type: gross Qualified Code(s): R31.0 - Gross hematuria Progress Note Narrative: 82-year-old man with gross hematuria. Urine is still bloody overnight. He has an 18-Swedish three-way catheter and this does not irrigate well. We discussed increasing the size of the Dickerson, but he is having some significant discomfort associated with the catheter. Objective Initial Vital Signs Temp Pulse Resp BP Pulse Ox 97.6 F 81 12 182/99 99 01/05/18 03:59 01/05/18 03:59 01/05/18 03:59 01/05/18 03:59 01/05/18 03:59 - General physical appearance Present: well developed, well nourished, no distress - Respiratory Present: normal respiratory effort - Abdomen Present: soft - Genitourinary Present: normal penis with no external lesions, other (18-Swedish three-way catheter with slow CBI and pink-colored urine) - Labs 01/06/18 04:59 01/06/18 04:59 Diabetes panel 01/06/18 Range/Units 04:59 Sodium 140 (136-145) mEq/L Potassium 4.0 (3.5-5.1) mEq/L Chloride 107 (98-107) mEq/L Carbon Dioxide 28 (23-29) mEq/L BUN 21 (8-23) mg/dL Creatinine 1.02 (0.70-1.30) mg/dL Glucose 135 H (70-105) mg/dL Calcium 9.1 (8.6-10.3) mg/dL Calcium panel 01/06/18 Range/Units 04:59 Calcium 9.1 (8.6-10.3) mg/dL Pituitary panel 01/06/18 Range/Units 04:59 Sodium 140 (136-145) mEq/L Potassium 4.0 (3.5-5.1) mEq/L Chloride 107 (98-107) mEq/L Carbon Dioxide 28 (23-29) mEq/L BUN 21 (8-23) mg/dL Creatinine 1.02 (0.70-1.30) mg/dL Glucose 135 H (70-105) mg/dL Calcium 9.1 (8.6-10.3) mg/dL Adrenal panel 01/06/18 Range/Units 04:59 Sodium 140 (136-145) mEq/L Potassium 4.0 (3.5-5.1) mEq/L Chloride 107 (98-107) mEq/L Carbon Dioxide 28 (23-29) mEq/L BUN 21 (8-23) mg/dL Creatinine 1.02 (0.70-1.30) mg/dL Glucose 135 H (70-105) mg/dL Calcium 9.1 (8.6-10.3) mg/dL Consult Discharge Plan - Plan Referrals: Melvin Trujillo DO [Primary Care Provider] -
[2018-01-06] MEDS: Lisinopril 20 MG TABLET PO SCH (08:42)
[2018-01-06] MEDS: Gabapentin 300 MG CAPSULE PO SCH ×3 (08:42→20:34)
[2018-01-06] MEDS: EPA PO SCH (10:31)
[2018-01-06] MEDS: FISH OIL PO SCH (10:31)
[2018-01-06] MEDS: OMEGA PO SCH (10:31)
[2018-01-06] MEDS: FLUOROURACIL 30 GM TP SCH ×2 (10:31→20:35)
[2018-01-06] MEDS: DHA PO SCH (10:31)
--- NOTE | 2018-01-06 11:44 | Internal Med Progress Note ---
<Andrea Marcelo - Last Filed: 01/06/18 12:40> Hospitalist Progress Note - Encounter Date of Encounter: 01/06/18 Time of Encounter: 10:15 - Subjective Interval History: Patient was seen and examined at bedside this morning. He reports that his hematuria is about the same as admission. His only complaint this morning is irritation from the catheter. He has had hematuria once before year ago which he states he did not receive cystoscopy for. He did admit to some dysuria prior to presentation. Denies fevers, chills, flank pain, nausea, vomiting, changes to bowel movements. - Exam Vitals: Temp Pulse Resp BP Pulse Ox 97.7 F 82 16 130/82 92 01/06/18 07:51 01/06/18 07:51 01/06/18 07:51 01/06/18 07:51 01/06/18 08:30 Exam: General: Patient is alert, no acute distress, oriented x 3, resting comfortably in bed. Head: atraumatic, normocephalic,MMM Cardio: normal inspection, symmetric chest rise, irregular rhythm but rate controlled. no peripheral edema. Respiratory: Good respiratory effort. Normal breath sounds. No wheezing or crackles. Abdomen: Abdomen is soft, nontender. Bowel sounds are present, Agosto catheter in place back: no flank tenderness. : Agosto in place, showing bright red urine. Continuous irrigation turned off at this time. Skin: warm, dry, intact. Neuro: Alert oriented x 3 normal cranial nerves, no focal deficits Psych: Patient's affect is normal - Assessment and Plan (1) Hematuria Current Visit: Yes Status: Acute Assessment and Plan: Patient with gross hematuria. Etiology unclear at this time. Infectious vs distention from BPH vs r/o malignancy Urology consult in place. Per documentation, plan to undergo cystoscopy today. NPO Bladder irrigation held today. Monitor hemoglobin levels. Stable today at 13.7 Levaquin was added this AM by urology. Urine culture obtained and pending, NG so far. Plan - Hold asa and plavix - Monitor H/H - Appreciate urology recs. - Will monitor for results of cystoscopy (2) Acute urinary retention Current Visit: Yes Status: Acute Assessment and Plan: Resolved with agosto catheter. - Patient reports previously taking Flomax for BPH however has not in many months and never followed up with urologist. - May also be related to blood clots in the setting of hematuria - Urology following Plan - Continue to monitor with urology recs - Continue agosto per urology (3) Coronary artery disease Current Visit: Yes Status: Chronic Assessment and Plan: - Patient takes aspirin, Plavix and statin. -We will hold aspirin and Plavix for now due to acute bleed. - Once bleeding improves, may resume his medications. - no reports of chest pain. (4) HLD (hyperlipidemia) Current Visit: Yes Status: Chronic Assessment and Plan: - Continue home statin (5) HTN (hypertension) Current Visit: Yes Status: Chronic Assessment and Plan: - has been well controlled most recently 130/80 - Continue home medications. - Time Spent with Patient Total time spent is greater than 50% in coordination of care (as documented) at patient's floor/unit and/or counseling patient: Internal Medicine: Result - Labs CBC & Chem 7: 01/06/18 04:59 01/06/18 04:59 Labs: Short CBC 01/06/18 Range/Units 04:59 WBC 6.3 (4.3-11.1) K/mcL Hgb 13.7 (12.9-16.9) g/dL Hct 41.3 (37.5-50.1) % Plt Count 171 (140-400) K/mcL Neutrophils # 4.3 (1.6-8.9) K/mcL BMP 01/06/18 04:59 Sodium 140 Potassium 4.0 Chloride 107 Carbon Dioxide 28 BUN 21 Creatinine 1.02 Glucose 135 H Calcium 9.1 - ABG Interpretation ABG results: PT/INR, D-dimer PT 11.0 Seconds (9.4-12.1) 01/05/18 07:33 Consult Discharge Plan - Plan Referrals: Melvin Trujillo DO [Primary Care Provider] - <Veronica Batista - Last Filed: 01/06/18 13:06> Hospitalist Progress Note - Encounter Date of Encounter: 01/06/18 - Exam Vitals: Temp Pulse Resp BP Pulse Ox 97.7 F 82 16 130/82 92 01/06/18 07:51 01/06/18 07:51 01/06/18 07:51 01/06/18 07:51 01/06/18 08:30 - Assessment and Plan (1) Hematuria Current Visit: Yes Status: Acute (2) Acute urinary retention Current Visit: Yes Status: Acute (3) Coronary artery disease Current Visit: Yes Status: Chronic (4) HLD (hyperlipidemia) Current Visit: Yes Status: Chronic (5) HTN (hypertension) Current Visit: Yes Status: Chronic - Time Spent with Patient Total time spent is greater than 50% in coordination of care (as documented) at patient's floor/unit and/or counseling patient: Internal Medicine: Result - Labs CBC & Chem 7: 01/06/18 04:59 01/06/18 04:59 Labs: Short CBC 01/06/18 Range/Units 04:59 WBC 6.3 (4.3-11.1) K/mcL Hgb 13.7 (12.9-16.9) g/dL Hct 41.3 (37.5-50.1) % Plt Count 171 (140-400) K/mcL Neutrophils # 4.3 (1.6-8.9) K/mcL BMP 01/06/18 04:59 Sodium 140 Potassium 4.0 Chloride 107 Carbon Dioxide 28 BUN 21 Creatinine 1.02 Glucose 135 H Calcium 9.1 - ABG Interpretation ABG results: PT/INR, D-dimer PT 11.0 Seconds (9.4-12.1) 01/05/18 07:33 - Attending Attestation I examined this patient and my medical decision-making was reviewed with the Resident Physician Dr Marcelo. I agree with the documented findings, disposition and treatment plan as described except to the extent set forth below. Mr Mao is here with hematuria and inability to pass large clots. Undergoing bladder irriagtion and being taken to OR with Urology for cystopscopy today awake, resting in bed, family present. No pain with hematuria, discomfort with agosto, no back pain or abd pain, no recent dysuria, fevers or chills. no presyncope or syncope. gen- alert, awake,appears stated age eyes- pupils equal round , no conjunctival pallor cv- reg rate and rhythm, normal s1,s2, no murmurs appreciated (irregular rhythm noted by resident was not appreciated) lungs- ctabl, no wheezing, rhonchi or crackles, normal resp effort on room air abd- soft, non tender, non distended, + bs gu- agosto cath with red clear urine neuro- AAOx3 Hematuria, prior occurrence, with large clots -urology following, bladder irrigation, cystoscopy today -holding asa + plavix (stents 2008 and 2009 on record review, tia 1998) -UA reviewed, ucx pending,s tarted on levaquin by urology 01/06 Acute on Chronic Urinary Retention with bph -agosto, possible intervention by urology <Andrea Marcelo - Last Filed: 01/06/18 12:40> (1) Hematuria Qualifiers: Hematuria type: gross Qualified Code(s): R31.0 - Gross hematuria (3) Coronary artery disease Qualifiers: Coronary Disease-Associated Artery/Lesion type: [place] artery [place] vs. transplanted heart: [place] heart Associated angina: without angina Qualified Code(s): I25.10 - Atherosclerotic heart disease of [place] coronary artery without angina pectoris (4) HLD (hyperlipidemia) Qualifiers: Hyperlipidemia type: unspecified Qualified Code(s): E78.5 - Hyperlipidemia, unspecified (5) HTN (hypertension) Qualifiers: Hypertension type: essential hypertension Qualified Code(s): I10 - Essential (primary) hypertension <Veronica Batista - Last Filed: 01/06/18 13:06> (1) Hematuria Qualifiers: Hematuria type: gross Qualified Code(s): R31.0 - Gross hematuria (3) Coronary artery disease Qualifiers: Coronary Disease-Associated Artery/Lesion type: [place] artery [place] vs. transplanted heart: [place] heart Associated angina: without angina Qualified Code(s): I25.10 - Atherosclerotic heart disease of [place] coronary artery without angina pectoris (4) HLD (hyperlipidemia) Qualifiers: Hyperlipidemia type: unspecified Qualified Code(s): E78.5 - Hyperlipidemia, unspecified (5) HTN (hypertension) Qualifiers: Hypertension type: essential hypertension Qualified Code(s): I10 - Essential (primary) hypertension
[2018-01-06] MEDS ORDERED: *HR* Labetalol 20 MG/4 ML SYRINGE IVP PRN (13:24)
[2018-01-06] MEDS ORDERED: Ondansetron 4 MG/2 ML VIAL IVP PRN (13:24)
[2018-01-06] MEDS ORDERED: *HR* HYDROmorphone 2 MG/ML SYRINGE IVP PRN (13:24)
[2018-01-06] MEDS ORDERED: *HR* PHENYLEPHRINE 1,000 MCG/10 ML SYRINGE IVP ONE (13:39)
[2018-01-06] MEDS ORDERED: *HR* Vasopressin 20 UNIT/ML VIAL ONE (13:43)
[2018-01-06] MEDS ORDERED: *HR* Propofol 200 MG/20 ML VIAL IVP ONE ×2 (13:47→13:57)
[2018-01-06] MEDS ORDERED: Neostigmine Methylsulfate 3 MG/3 ML SYRINGE ONE (13:52)
[2018-01-06] MEDS ORDERED: Lidocaine -MPF 2% 2 ML VIAL ONE (13:57)
[2018-01-06] MEDS ORDERED: *HR* FentaNYL (PF) 100 MCG/2 ML VIAL ONE (13:57)
--- NOTE | 2018-01-06 14:01 | Operative Note ---
Date of procedure: 01/06/18 Pre-op diagnosis: Hematuria Post-op diagnosis: same Procedure: Cystoscopy, clot evacuation, fulguration Implants: 20-Sami two-way catheter Complications: None Anesthesia: GETA Surgeon: Andrea Guardado Was there an sales assistant present: No Estimated blood loss (cc): 1 Specimen: None Condition: stable Disposition: PACU Procedure in Detail: Indications: Mr. Mao is an 82-year-old gentleman with a history of hematuria. He elected to undergo cystoscopy, clot evacuation, and fulguration. He is aware of the risks of the procedure including but not limited to bleeding, infection, injury to other structures, need for further procedures, bladder perforation, and the risk of anesthesia. He is willing to proceed. Procedure: After informed consent was obtained the patient was brought back to the operating room and placed in the supine position. A timeout was performed. Gen. anesthesia was administered and an endotracheal tube was placed. He was then placed in lithotomy position. His genitalia were prepped and draped in the usual sterile fashion. The cystoscope was advanced into the bladder. A clot was seen and irrigated out of the bladder. There is no evidence of bladder tumor. The ureteral orifices were in the normal orthotopic position. The prostate had a small TUR defect. There was bleeding at the bladder neck. The lateral lobes were still intact. The resectoscope was inserted. The Zambrano element was then inserted. I then cauterized the bladder neck. I confirmed hemostasis was excellent. A 20-Sami two-way catheter was then placed. 15 mL was instilled in the balloon. The catheter irrigated clear. The patient was then awakened from general anesthesia and brought to the recovery room in good condition. All sponge, needle, and instrument counts were correct.
[2018-01-06] MEDS ORDERED: Albuterol 2.5 MG/3 ML NEBULIZER ONE (14:46)
[2018-01-06] MEDS ORDERED: Albuterol 2.5 MG/3 ML NEBULIZER IH ONE (14:48)
[2018-01-06] MEDS ORDERED: Diclofenac Sodium 75 MG TABLET PO PRN (15:05)
[2018-01-06] MEDS ORDERED: Naloxone 0.4 MG/ML INJ IVP PRN (15:05)
--- NOTE | 2018-01-06 15:21 | Anesthesia Evaluation Post Op ---
Date of Encounter: 01/06/18 Time of Encounter: 15:00 - Discharge PostOp Status: Transfer Patient to floor (Patient's vital signs have been reviewed. Patient is stable postoperatively and has adequately recovered from anesthesia. Patient is determined to have stable airway patency and respiratory function including respiratory rate and oxygen saturation. Patient has a stable heart rate, blood pressure and adequate hydration. Patients mental status is acceptable. Patients temperature is appropriate. Pain and nausea are adequately controlled.)
[2018-01-06] MEDS ORDERED: 0.9 % Sodium Chloride 500 ML IVC ONE (20:35)
[2018-01-07 05:37] LABS: Basophils % 0.3 %; Eosinophils # 0.1 K/mcL (0.0-0.6); Hematocrit 39.8 % (37.5-50.1); Hemoglobin 13.3 g/dL (12.9-16.9); Immature Granulocytes % 0.3 % (0-4); Lymphocytes # 1.2 K/mcL (0.6-4.6); Lymphocytes % 19.7 %; Mean Corpuscular HGB Conc 33.4 g/dL (31.6-35.5); Mean Corpuscular Hemoglobin 32.3 pg (28.0-33.3); Mean Corpuscular Volume 96.6 fL (83.0-100.0); Mean Platelet Volume 10.8 fL (9.4-12.4); Monocytes # 0.5 K/mcL (0.0-1.3); Monocytes % 8.4 %; Neutrophils # 4.1 K/mcL (1.6-8.9); Platelet Count 179 K/mcL (140-400); Red Blood Count 4.12 M/mcL (4.19-5.50); Segmented Neutrophils % 69.3 %
[2018-01-07 05:56] LABS: BUN/Creatinine Ratio 22 (6-26); Blood Urea Nitrogen 22 mg/dL (8-23); Calcium 8.9 mg/dL (8.6-10.3); Carbon Dioxide 25 mEq/L (23-29); Chloride 105 mEq/L (98-107); Glucose 161 mg/dL (70-105); Osmolality,Calculated 291 (280-300); Sodium 137 mEq/L (136-145); eGFR For Non-African Americans > 60 (> 60)
[2018-01-07 07:55] VITALS: BP 93/60
[2018-01-07] MEDS: Gabapentin 300 MG CAPSULE PO SCH (08:36)
[2018-01-07] MEDS ORDERED: DHA PO SCH (09:00)
[2018-01-07] MEDS ORDERED: EPA PO SCH (09:00)
[2018-01-07] MEDS ORDERED: OMEGA PO SCH (09:00)
[2018-01-07] MEDS ORDERED: Lisinopril 20 MG TABLET PO SCH (09:00)
[2018-01-07] MEDS ORDERED: FISH OIL PO SCH (09:00)
--- NOTE | 2018-01-07 09:20 | Urology Progress Note ---
Date of Encounter: 01/07/18 Time of Encounter: 09:19 - Assessment and Plan (1) Acute urinary retention Current Visit: Yes Status: Acute (2) Hematuria Current Visit: Yes Status: Acute Assessment and plan: 82-year-old gentleman with gross hematuria. He had bleeding from his bladder neck. This was cauterized yesterday. His urine is clear today. Okay to discharge home from my standpoint. He can follow-up with me later this week for a voiding trial. Qualifiers: Hematuria type: gross Qualified Code(s): R31.0 - Gross hematuria Progress Note Narrative: Postoperative day #1 status post cystoscopy, clot evacuation, and fulguration. He is doing well. Urine is clear. He denies any discomfort. Objective Initial Vital Signs Temp Pulse Resp BP Pulse Ox 97.6 F 81 12 182/99 99 01/05/18 03:59 01/05/18 03:59 01/05/18 03:59 01/05/18 03:59 01/05/18 03:59 - General physical appearance Present: well developed, well nourished, no distress - Respiratory Present: normal respiratory effort - Abdomen Present: soft - Genitourinary Urine Appearance: Present: Clear - Labs 01/07/18 05:04 01/07/18 05:04 Diabetes panel 01/07/18 Range/Units 05:04 Sodium 137 (136-145) mEq/L Potassium 4.0 (3.5-5.1) mEq/L Chloride 105 (98-107) mEq/L Carbon Dioxide 25 (23-29) mEq/L BUN 22 (8-23) mg/dL Creatinine 1.02 (0.70-1.30) mg/dL Glucose 161 H (70-105) mg/dL Calcium 8.9 (8.6-10.3) mg/dL Calcium panel 01/07/18 Range/Units 05:04 Calcium 8.9 (8.6-10.3) mg/dL Pituitary panel 01/07/18 Range/Units 05:04 Sodium 137 (136-145) mEq/L Potassium 4.0 (3.5-5.1) mEq/L Chloride 105 (98-107) mEq/L Carbon Dioxide 25 (23-29) mEq/L BUN 22 (8-23) mg/dL Creatinine 1.02 (0.70-1.30) mg/dL Glucose 161 H (70-105) mg/dL Calcium 8.9 (8.6-10.3) mg/dL Adrenal panel 01/07/18 Range/Units 05:04 Sodium 137 (136-145) mEq/L Potassium 4.0 (3.5-5.1) mEq/L Chloride 105 (98-107) mEq/L Carbon Dioxide 25 (23-29) mEq/L BUN 22 (8-23) mg/dL Creatinine 1.02 (0.70-1.30) mg/dL Glucose 161 H (70-105) mg/dL Calcium 8.9 (8.6-10.3) mg/dL - VTE Reasons for not Prescribing Prophylaxis: Medical contraindication Consult Discharge Plan - Plan Referrals: Melvin Trujillo DO [Primary Care Provider] - (Unable to schedule follow up appointment due to office being closed. Please call monday to schedule appointment for 7-10 days from date of discharge. )
[2018-01-07] MEDS: FLUOROURACIL 30 GM TP SCH (10:18)
--- NOTE | 2018-01-07 11:48 | Discharge Summary ---
<Andrea Marcelo - Last Filed: 01/07/18 11:46> - NOTES TO OUTPATIENT PROVIDER Notes to Outpatient Provider: Patient presented with hematuria. Urology did perform cystoscopy and found a large clot at the bladder neck. Hemoglobin has remained stable throughout hospital stay. We did hold his aspirin and Plavix during stable discharge home on aspirin without Plavix until he follows up with his primary care doctor. We are also instructed him to hold his lisinopril as he has been well controlled and blood pressure without it. Date of Encounter: 01/07/18 Time of Encounter: 11:46 - Discharge Diagnosis (1) Hematuria Priority: Primary Status: Acute Qualifiers: Hematuria type: gross Qualified Code(s): R31.0 - Gross hematuria (2) Acute urinary retention Priority: Secondary Status: Acute (3) Coronary artery disease Priority: Secondary Status: Chronic Qualifiers: Coronary Disease-Associated Artery/Lesion type: [place] artery [place] vs. transplanted heart: [place] heart Associated angina: without angina Qualified Code(s): I25.10 - Atherosclerotic heart disease of [place] coronary artery without angina pectoris (4) HLD (hyperlipidemia) Priority: Secondary Status: Chronic Qualifiers: Hyperlipidemia type: unspecified Qualified Code(s): E78.5 - Hyperlipidemia , unspecified (5) HTN (hypertension) Priority: Secondary Status: Chronic Qualifiers: Hypertension type: essential hypertension Qualified Code(s): I10 - Essential (primary) hypertension Hospital course: Mr. Mao is a 82 year old male with past medical history of BPH, prior kidney stones, CAD, TIA who presented to the emergency department with hematuria. He was also having symptoms of urinary retention at that time and fully catheter was placed in the emergency room. He denied any systemic symptoms. On presentation to the emergency room, vitals were significant for a blood pressure of 182/99, otherwise unremarkable. Laboratory results on presentation were within normal limits including H/H. His urinalysis was obtained and showed large monitor blood with small leukocyte esterase. Urology was consulted and did see the patient during the admission. Patient was hooked up to continuous bladder irrigation with only minimal improvement of symptoms. He did undergo cystoscopy with urology and a large clot was removed with some bleeding at the bladder neck which was cauterized. He was started on Flomax did receive 2 days of Levaquin however this has been discontinued by urology as infection is unlikely at this time. On day of discharge, patient's symptoms have resolved and Agosto catheter did show light yellow urine. He has been afebrile and only urine symptoms were mild amount of dysuria. His blood pressure has been borderline hypotensive during stay possibly related to anesthesia. His lisinopril has been held and he has tolerated this well. Laboratory results have remained stable and vital to return to baseline levels except for blood pressure as above. Blood pressure and discharge was most recently 93/60. Urine cultures returned with final no growth. He will be discharged home in stable medical condition with instructions to return to primary care physician within 3-5 days. He also has a follow-up appointment scheduled with urology. Per urology instructions, patient will go home with Agosto catheter in place and follow-up with urology in 4 days for removal. He was instructed to resume his home aspirin however hold his Plavix until he is able to establish with his primary care physician. He was instructed to return to the emergency room with any worsening of symptoms including fevers, chills, nausea, vomiting, gross hematuria. Discharge discussed with: patient, family, nurse - Time Spent with Patient Total time spent providing and/or coordinating discharge services: - Discharge Medications Prescriptions: Tamsulosin [Flomax] 0.4 mg PO DAILY 5 Days #5 capsule Home Medications: Aspirin [Lo-Dose Aspirin EC] 81 mg PO DAILY 02/16/16 [History] Diclofenac Sodium [Voltaren] 75 mg PO BID PRN 02/16/16 [History] Fluorouracil [Carac] 30 gm TP BID 02/16/16 [History] Gabapentin [Neurontin] 300 mg PO TID 02/16/16 [History] Cameron-3/Dha/Epa/Fish Oil [Cameron 3 500 Softgel] 1 each PO DAILY 02/16/16 [History ] Vit C/Vit E/Lutein/Min/Cameron-3 [Ocuvite Softgel] 1 each PO DAILY 02/16/16 [ History] Atorvastatin Calcium [Lipitor] 20 mg PO DAILY 01/05/18 [History] Cyclobenzaprine HCl 5 mg PO TID PRN 01/05/18 [History] Testosterone [Androgel] 2 pump TD DAILY 01/05/18 [History] Tamsulosin [Flomax] 0.4 mg PO DAILY 5 Days #5 capsule 01/07/18 [Rx] Allergies/Adverse Reactions: 3 Allergy/AdvReac Type Severity Reaction Status Date / Time ampicillin Allergy Rash Verified 01/05/18 07:44 Date of admission: 01/06/18 18:00 Primary care physician: Melvin Trujillo Discharging clinician: Andrea Marcelo Anticipated date of discharge: 01/07/18 - Constitutional Vitals: Temp Pulse Resp BP Pulse Ox 98.3 F 76 20 93/60 94 01/07/18 07:54 01/07/18 07:54 01/07/18 07:54 01/07/18 07:54 01/07/18 07:54 General appearance: Present: cooperative, A&O X 3, pleasant, answers questions appropriately Exam: General: Patient is alert, no acute distress, oriented x 3, resting comfortably in bed. Head: atraumatic, normocephalic,MMM Cardio: normal inspection, symmetric chest rise, irregular rhythm but rate controlled. no peripheral edema. Respiratory: Good respiratory effort. Normal breath sounds. No wheezing or crackles. Abdomen: Abdomen is soft, nontender. Bowel sounds are present, Agosto catheter in place with light yellow urine back: no flank tenderness. Skin: warm, dry, intact. Neuro: Alert oriented x 3 normal cranial nerves, no focal deficits Psych: Patient's affect is normal - Patient Status Disposition: Home, Self-Care Condition: Good Functional capacity at discharge: independent ambulation Overall status at discharge: patient is back to baseline - Discharge Instructions Instructions: Urinary Retention in Men (GEN), Urinary Leg Bag (GEN) Follow Up With: Melvin Trujillo DO [Primary Care Provider] - (Unable to schedule follow up appointment due to office being closed. Please call monday to schedule appointment for 5 days from date of discharge. ) Andrea Guardado MD [Partnered Physician] - (Follow up appointment requested. Office will call with date and time of appointment. ) Additional Instructions: Please follow up with her PCP within 5 days. Take all medication as prescribed. He will notice that we did not continue your lisinopril as well as Plavix. Please do not resume these without talking first-year primary care provider. Follow-up with urology as scheduled. - Diet and Activity Activity: increase activity as tolerated, return to work once cleared by your PCP/specialist, resume usual activities as tolerated Diet: advance to your usual diet - VTE Reasons for not Prescribing Prophylaxis: Medical contraindication <Veronica Batista - Last Filed: 01/07/18 13:03> Date of Encounter: 01/07/18 - Discharge Diagnosis (1) Hematuria Status: Acute Qualifiers: Hematuria type: gross Qualified Code(s): R31.0 - Gross hematuria (2) Acute urinary retention Status: Acute (3) Coronary artery disease Status: Chronic Qualifiers: Coronary Disease-Associated Artery/Lesion type: [place] artery [place] vs. transplanted heart: [place] heart Associated angina: without angina Qualified Code(s): I25.10 - Atherosclerotic heart disease of [place] coronary artery without angina pectoris (4) HLD (hyperlipidemia) Status: Chronic Qualifiers: Hyperlipidemia type: unspecified Qualified Code(s): E78.5 - Hyperlipidemia , unspecified (5) HTN (hypertension) Status: Chronic Qualifiers: Hypertension type: essential hypertension Qualified Code(s): I10 - Essential (primary) hypertension Hospital course: Mr. Mao is a 82 year old male - Time Spent with Patient Total time spent providing and/or coordinating discharge services: Less than 30 minutes Date of admission: 01/06/18 18:00 Primary care physician: Melvin Trujillo - Constitutional Vitals: Temp Pulse Resp BP Pulse Ox 98.3 F 76 20 93/60 94 01/07/18 07:54 01/07/18 07:54 01/07/18 07:54 01/07/18 07:54 01/07/18 07:54 - Attending Attestation I examined this patient and my medical decision-making was reviewed with the Resident Physician Dr Marcelo. I agree with the documented findings, disposition and treatment plan as described except to the extent set forth below. Mr Mao is here with hematuria which has resolved since urologic intervention awake, resting in bed, family present. No pain, clear yellow urine with agosto cath in place. Denies fevers or chills. tolerated procedure well, did have low bps post op. He denies any lightheadedness, dizziness, sob or cp. Will dc with agosto and urology follow up. gen- alert, awake,appears stated age, nad eyes- pupils equal round , no conjunctival pallor cv- reg rate and rhythm, normal s1,s2, no murmurs appreciated (irregular rhythm noted by resident was not appreciated) lungs- ctabl, no wheezing, rhonchi or crackles, normal resp effort on room air abd- soft, non tender, non distended, + bs gu- agosto cath with red clear urine neuro- AAOx3 Hematuria, prior occurrence, with large clots -urology followed, bladder irrigation, cystoscopy with large clot identified, no masses -held asa + plavix (stents 2008 and 2009 on record review, tia 1998) and hgb remained stable throughouta dmission, may dc on asa but hold plavix until follow up -will dc with agosto and urology fu, no abx required as per urology Acute on Chronic Urinary Retention with bph rx for flomax on dc, agosto +urology as above
--- NOTE | 2018-01-09 10:21 | Electrocardiograph Report ---
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
== END 2018-01-07 13:42 | disposition home or self-care (01) | DRG 664 ==
LOC: 3BNU 03:53 → EMEROOARM 03:53 → SUATTDRO 07:38 → 3BNU 08:54
PROVIDERS: ADMIT Internal Medicine; ATTEND Internal Medicine

== ENCOUNTER 2019-11-07 18:47 | Observation (INO) ==
[2019-11-07] MEDS ORDERED: Aspirin 81 MG TAB.CHEW PO ONE (18:59)
[2019-11-07 19:35] LABS: INR 1.1; Prothrombin Time 12.4 Seconds (9.4-12.1)
[2019-11-07 19:37] LABS: Activated Partial Thrombo Time 26.9 Seconds (26.0-36.0)
[2019-11-07 19:39] LABS: Eosinophils % 0.4 %; Hematocrit 43.9 % (37.5-50.1); Hemoglobin 14.7 g/dL (12.9-16.9); Immature Granulocytes % 0.4 % (0-4); Mean Corpuscular HGB Conc 33.5 g/dL (31.6-35.5); Mean Corpuscular Hemoglobin 31.5 pg (28.0-33.3); Mean Platelet Volume 10.4 fL (9.4-12.4); Red Blood Count 4.67 M/mcL (4.19-5.50)
[2019-11-07 19:41] LABS: Basophils # 0.1 K/mcL (0.0-0.2); Basophils % 1.1 %; Immature Platelets 2.9 % (1.1-6.1); Lymphocytes # 1.9 K/mcL (0.6-4.6); Lymphocytes % 39.7 %; Monocytes # 0.9 K/mcL (0.0-1.3); Monocytes % 19.5 %; Neutrophils # 1.8 K/mcL (1.6-8.9); Platelet Count 160 K/mcL (140-400); Red Cell Distribution Width 13.2 % (11.5-14.5); Segmented Neutrophils % 38.9 %; White Blood Count 4.7 K/mcL (4.3-11.1)
[2019-11-07 19:55] LABS: Platelet Estimate Normal (Normal); Reactive Lymphocytes Present (Not Present)
[2019-11-07 20:52] LABS: Alanine Aminotransferase 44 Units/L (7-52); Albumin 4.1 g/dL (3.5-5.7); Albumin/Globulin Ratio 1.5 (1.1-2.2); Alkaline Phosphatase 98 Units/L (34-104); Aspartate Amino Transferase 41 Units/L (13-39); BUN/Creatinine Ratio 18 (6-26); Bilirubin,Direct 0.1 mg/dL (0.0-0.2); Bilirubin,Indirect 0.9 mg/dL (0.0-1.0); Blood Urea Nitrogen 24 mg/dL (8-23); Calcium 9.3 mg/dL (8.6-10.3); Carbon Dioxide 24 mEq/L (23-29); Chloride 100 mEq/L (98-107); Globulin 2.8 g/dL (2.4-3.5); Glucose 183 mg/dL (70-105); Lipase 14 Units/L (11-82); Osmolality,Calculated 285 (280-300); Potassium 4.9 mEq/L (3.5-5.1); Sodium 133 mEq/L (136-145); Total Protein 6.9 g/dL (6.4-8.9); Troponin I < 0.03 ng/mL (< 0.04); eGFR For African Americans > 60 (> 60); eGFR For Non-African Americans 50 (> 60)
[2019-11-07] MEDS ORDERED: 0.9 % Sodium Chloride 1,000 ML IVC ONE (21:17)
[2019-11-07 21:27] LABS: Adenovirus Not Detected (Not Detect); Coronavirus 229E Not Detected (Not Detect); Coronavirus HKU1 Not Detected (Not Detect); Coronavirus NL63 Not Detected (Not Detect); Coronavirus OC43 Not Detected (Not Detect)
[2019-11-07 21:32] LABS: Bordetella Pertussis Not Detected (Not Detect); Chlamydophila pneumoniae Not Detected (Not Detect); Human Metapneumovirus Not Detected (Not Detect); Human Rhinovirus/Enterovirus Not Detected (Not Detect); Influenza A Subtype 2009 H1 Not Detected (Not Detect); Influenza B Not Detected (Not Detect); Mycoplasma pneumoniae Not Detected (Not Detect); Parainfluenza Virus 1 Not Detected (Not Detect); Parainfluenza Virus 2 Not Detected (Not Detect); Parainfluenza Virus 3 Not Detected (Not Detect); Parainfluenza Virus 4 Not Detected (Not Detect); Respiratory Syncytial Virus Not Detected (Not Detect)
[2019-11-07] MEDS ORDERED: 0.9 % Sodium Chloride 1,000 ML IVC SCH (22:45)
[2019-11-07] MEDS ORDERED: *HR* Promethazine 25 MG/ML VIAL IVP PRN (22:45)
[2019-11-07] MEDS ORDERED: Acetaminophen 325 MG TABLET PO PRN (22:45)
[2019-11-07] MEDS ORDERED: Naloxone 0.4 MG/ML INJ IVP PRN (22:45)
[2019-11-07] MEDS ORDERED: Mag Hydrox/Al Hydrox/Simeth 30 ML UDC PO PRN (22:45)
[2019-11-07] MEDS ORDERED: Perflutren Lipid Microsphere 1.3 ML in 0.9 % Sodium Chloride 8.7 ML IVP PRN (22:50)
[2019-11-07] MEDS ORDERED: Ipratropium/Albuterol Neb 3 ML IH PRN (23:57)
[2019-11-07] MEDS ORDERED: Nitroglycerin 0.4 MG TAB.SUBL SL PRN (23:58)
[2019-11-07] MEDS ORDERED: Morphine Sulfate 2 MG/ML SYRINGE IVP PRN (23:58)
[2019-11-08 05:56] LABS: Hematocrit 36.8 % (37.5-50.1); Lymphocytes # 1.7 K/mcL (0.6-4.6); Mean Corpuscular HGB Conc 33.2 g/dL (31.6-35.5); Mean Corpuscular Hemoglobin 32.4 pg (28.0-33.3); Mean Corpuscular Volume 97.6 fL (83.0-100.0); Mean Platelet Volume 9.8 fL (9.4-12.4); Platelet Count 151 K/mcL (140-400); Red Blood Count 3.77 M/mcL (4.19-5.50); Red Cell Distribution Width 13.1 % (11.5-14.5); White Blood Count 3.9 K/mcL (4.3-11.1)
[2019-11-08] MEDS ORDERED: *HR* Heparin 5,000 UNIT/ML VIAL SQ SCH (06:00)
[2019-11-08] MEDS ORDERED: Regadenoson 0.4 MG/5 ML SYRINGE IVP ONE (06:13)
[2019-11-08 06:17] LABS: BUN/Creatinine Ratio 20 (6-26); Blood Urea Nitrogen 19 mg/dL (8-23); Calcium 8.4 mg/dL (8.6-10.3); Carbon Dioxide 24 mEq/L (23-29); Chloride 105 mEq/L (98-107); Cholesterol 91 mg/dL (< 200); Glucose 115 mg/dL (70-105); HDL Cholesterol 23 mg/dL (40-59); LDL Cholesterol,Calculated 45 mg/dL (< 100); Magnesium 2.1 mg/dL (1.6-2.6); Osmolality,Calculated 285 (280-300); Phosphorous 3.4 mg/dL (2.7-4.5); Potassium 4.1 mEq/L (3.5-5.1); Sodium 136 mEq/L (136-145); Triglycerides 116 mg/dL (< 150); eGFR For African Americans > 60 (> 60); eGFR For Non-African Americans > 60 (> 60)
[2019-11-08 06:25] LABS: Hemoglobin 12.2 g/dL (12.9-16.9)
[2019-11-08 06:29] LABS: Thyroid Stimulating Hormone 1.603 mcIU/mL (0.340-5.600)
[2019-11-08 06:36] LABS: Eosinophils # 0.1 K/mcL (0.0-0.6); Monocytes # 0.8 K/mcL (0.0-1.3); Neutrophils # 1.3 K/mcL (1.6-8.9); Platelet Estimate Normal (Normal); Reactive Lymphocytes Present (Not Present)
[2019-11-08 07:59] LABS: Estimated Average Glucose 146 mg/dl
[2019-11-08] MEDS ORDERED: Gabapentin 300 MG CAPSULE PO SCH (09:00)
[2019-11-08] MEDS ORDERED: Aspirin Enteric Coated 81 MG Tablet PO SCH (09:00)
[2019-11-08 11:50] VITALS: BP 110/67
[2019-11-09] MEDS ORDERED: lisinopriL 10 MG TABLET PO SCH (09:00)
== END 2019-11-08 15:49 | disposition home or self-care (01) ==
LOC: 3BNU 18:47 → EMEROOARM 18:47 → 3BNU 22:13
PROVIDERS: ADMIT Internal Medicine; ATTEND Internal Medicine

== ENCOUNTER 2021-04-14 13:41 | Inpatient (IN) ==
[2021-04-14] MEDS ORDERED: *HR* HYDROcodone/Acet 5/325 mg TABLET PO ONE (22:06)
[2021-04-14 22:23] LABS: Hematocrit 41.5 % (37.5-50.1); Hemoglobin 13.9 g/dL (12.9-16.9); Mean Corpuscular HGB Conc 33.5 g/dL (31.6-35.5); Mean Corpuscular Hemoglobin 32.5 pg (28.0-33.3); Mean Platelet Volume 10.5 fL (9.4-12.4); Platelet Count 234 K/mcL (140-400); Red Blood Count 4.28 M/mcL (4.19-5.50); Red Cell Distribution Width 12.7 % (11.5-14.5); White Blood Count 11.6 K/mcL (4.3-11.1)
[2021-04-14 22:32] LABS: INR 1.1; Prothrombin Time 12.6 Seconds (9.4-12.1)
[2021-04-14 22:40] LABS: BUN/Creatinine Ratio 27 (6-26); Blood Urea Nitrogen 24 mg/dL (8-23); Calcium 9.7 mg/dL (8.6-10.3); Carbon Dioxide 26 mEq/L (23-29); Chloride 104 mEq/L (98-107); Glucose 121 mg/dL (70-105); Osmolality,Calculated 289 (280-300); Potassium 3.9 mEq/L (3.5-5.1); Sodium 137 mEq/L (136-145); eGFR For African Americans > 60 (> 60); eGFR For Non-African Americans > 60 (> 60)
[2021-04-15] MEDS ORDERED: Naloxone 0.4 MG/ML INJ IVP PRN (00:27)
[2021-04-15] MEDS ORDERED: tiZANidine 4 MG TABLET PO PRN (02:50)
[2021-04-15] MEDS ORDERED: Ondansetron 4 MG/2 ML VIAL IVP PRN (02:55)
[2021-04-15] MEDS ORDERED: Acetaminophen 325 MG TABLET PO PRN (02:55)
[2021-04-15] MEDS: *HR* OxyCODONE Immed Rel 5 MG TABLET PO PRN ×2 (05:08→21:01)
[2021-04-15] MEDS: *HR* Heparin 5,000 UNIT/ML VIAL SQ SCH ×3 (05:09→21:02)
[2021-04-15 05:28] LABS: Bilirubin,Urine Negative (Negative); Blood,Urine Negative (Negative); Clarity,Urine Clear (Clear); Color,Urine Yellow (Yellow); Glucose,Urine (UA) Normal (Normal); Ketones,Urine Negative (Negative); Leukocyte Esterase,Urine Small (Negative); Mucus,Urine Few per lpf (None-Few); Nitrite,Urine Positive (Negative); PH,Urine 6.5 pH Units (5.0-8.0); Protein,Urine Trace mg/dL (Neg-Trace); Specific Gravity,Urine 1.022 (1.010-1.025); Squamous Epithelial Cell,Urine Few per hpf (None-Few); Urobilinogen,Urine Normal (Normal)
[2021-04-15 05:33] LABS: Hematocrit 41.6 % (37.5-50.1); Hemoglobin 13.6 g/dL (12.9-16.9); Mean Corpuscular HGB Conc 32.7 g/dL (31.6-35.5); Mean Corpuscular Hemoglobin 31.9 pg (28.0-33.3); Mean Corpuscular Volume 97.4 fL (83.0-100.0); Mean Platelet Volume 10.7 fL (9.4-12.4); Platelet Count 211 K/mcL (140-400); Red Blood Count 4.27 M/mcL (4.19-5.50); Red Cell Distribution Width 12.7 % (11.5-14.5); White Blood Count 10.2 K/mcL (4.3-11.1)
[2021-04-15 05:45] LABS: Chol/HDL Ratio 2.3 (0-4.9)
[2021-04-15 05:54] LABS: BUN/Creatinine Ratio 30 (6-26); Blood Urea Nitrogen 25 mg/dL (8-23); Calcium 9.4 mg/dL (8.6-10.3); Carbon Dioxide 28 mEq/L (23-29); Chloride 103 mEq/L (98-107); Glucose 118 mg/dL (70-105); Osmolality,Calculated 289 (280-300); Potassium 3.8 mEq/L (3.5-5.1); Sodium 137 mEq/L (136-145); eGFR For African Americans > 60 (> 60); eGFR For Non-African Americans > 60 (> 60)
[2021-04-15 06:11] LABS: Estimated Average Glucose 131 mg/dl; Hemoglobin A1C 6.2 %
[2021-04-15] MEDS: Aspirin Enteric Coated 81 MG Tablet PO SCH (08:21)
[2021-04-15] MEDS: cefTRIAXone 1,000 MG in 0.9 % Sodium Chloride Mini Bag 100 ML IVP SCH (11:28)
[2021-04-15] MEDS: *HR* HYDROcodone/Acet 5/325 mg TABLET PO PRN (15:44)
[2021-04-15] MEDS ORDERED: Gabapentin 300 MG CAPSULE PO SCH (21:00)
[2021-04-16 02:40] LABS: Hematocrit 36.5 % (37.5-50.1); Hemoglobin 12.3 g/dL (12.9-16.9); Mean Corpuscular HGB Conc 33.7 g/dL (31.6-35.5); Mean Corpuscular Hemoglobin 32.8 pg (28.0-33.3); Mean Corpuscular Volume 97.3 fL (83.0-100.0); Mean Platelet Volume 10.3 fL (9.4-12.4); Platelet Count 181 K/mcL (140-400); Red Blood Count 3.75 M/mcL (4.19-5.50); Red Cell Distribution Width 12.8 % (11.5-14.5)
[2021-04-16 02:58] LABS: BUN/Creatinine Ratio 28 (6-26); Blood Urea Nitrogen 22 mg/dL (8-23); Carbon Dioxide 27 mEq/L (23-29); Chloride 102 mEq/L (98-107); Glucose 122 mg/dL (70-105); Osmolality,Calculated 281 (280-300); Potassium 3.6 mEq/L (3.5-5.1); Sodium 133 mEq/L (136-145); eGFR For African Americans > 60 (> 60); eGFR For Non-African Americans > 60 (> 60)
[2021-04-16] MEDS: *HR* Heparin 5,000 UNIT/ML VIAL SQ SCH ×2 (05:26→17:31)
[2021-04-16] MEDS ORDERED: *HR* FentaNYL (PF) 100 MCG/2 ML VIAL IVP PRN ×2 (07:14→18:20)
[2021-04-16] MEDS ORDERED: Ipratropium Neb 0.5 MG NEBULIZER IH PRN (07:14)
[2021-04-16] MEDS ORDERED: *HR* HYDROmorphone PF 0.5 MG/0.5 ML SYRINGE IVP PRN ×2 (07:14→18:20)
[2021-04-16] MEDS: Aspirin Enteric Coated 81 MG Tablet PO SCH ×2 (08:54→09:37)
[2021-04-16] MEDS: *HR* HYDROcodone/Acet 5/325 mg TABLET PO PRN (08:54)
[2021-04-16] MEDS: cefTRIAXone 1,000 MG in 0.9 % Sodium Chloride Mini Bag 100 ML IVP SCH (08:55)
[2021-04-16] MEDS ORDERED: [UNRECOGNIZED DRUG - OTHER] PO SCH (09:00)
[2021-04-16] MEDS ORDERED: amLODIPine 5 MG TABLET PO SCH (09:00)
[2021-04-16] MEDS ORDERED: Ondansetron 4 MG/2 ML VIAL ONE (12:25)
[2021-04-16] MEDS ORDERED: *HR* Propofol 200 MG/20 ML VIAL IVP ONE (12:25)
[2021-04-16] MEDS ORDERED: *HR* Rocuronium Bromide 50 MG/5 ML VIAL ONE (12:25)
[2021-04-16] MEDS ORDERED: Lidocaine -MPF 2% 5 ML VIAL ONE (12:25)
[2021-04-16] MEDS ORDERED: Famotidine 20 MG/2 ML VIAL IVP ONE (14:57)
[2021-04-16] MEDS ORDERED: Acetaminophen IV 1,000 MG/100 ML BAG IVPB ONE ×2 (14:57→18:20)
[2021-04-16] MEDS ORDERED: *HR* FentaNYL (PF) 100 MCG/2 ML VIAL ONE (15:14)
[2021-04-16] MEDS ORDERED: Ketamine HCL *QUVA* 50mg (1mL) SYRINGE ONE (15:14)
[2021-04-16] MEDS ORDERED: Ringers Solution, Lactated 1,000 ML IVC SCH ×2 (15:30→18:20)
[2021-04-16] MEDS ORDERED: Clindamycin 900 MG/50 ML 900 MG/50 ML IV.SOLN IVPB ONE (15:59)
[2021-04-16] MEDS ORDERED: Morphine Sulfate 2 MG/ML SYRINGE IVP PRN (17:00)
[2021-04-16] MEDS ORDERED: Ondansetron 4 MG/2 ML VIAL IVP PRN ×2 (17:00→18:20)
[2021-04-16] MEDS ORDERED: tiZANidine 4 MG TABLET PO PRN (18:20)
[2021-04-16] MEDS ORDERED: *HR* HYDROcodone/Acet 5/325 mg TABLET PO PRN (18:20)
[2021-04-16] MEDS ORDERED: Acetaminophen 325 MG TABLET PO PRN (18:20)
[2021-04-16] MEDS ORDERED: Naloxone 0.4 MG/ML INJ IVP PRN (18:20)
[2021-04-16] MEDS: Gabapentin 300 MG CAPSULE PO SCH (21:22)
[2021-04-16] MEDS: Clindamycin 900 MG/50 ML 900 MG/50 ML IV.SOLN IVPB SCH (23:46)
[2021-04-17 07:30] LABS: Hematocrit 32.4 % (37.5-50.1); Mean Corpuscular Hemoglobin 32.7 pg (28.0-33.3); Mean Corpuscular Volume 96.4 fL (83.0-100.0); Mean Platelet Volume 11.3 fL (9.4-12.4); Platelet Count 183 K/mcL (140-400); Red Blood Count 3.36 M/mcL (4.19-5.50); Red Cell Distribution Width 12.5 % (11.5-14.5); White Blood Count 10.7 K/mcL (4.3-11.1)
[2021-04-17 07:52] LABS: BUN/Creatinine Ratio 32 (6-26); Blood Urea Nitrogen 27 mg/dL (8-23); Calcium 8.8 mg/dL (8.6-10.3); Carbon Dioxide 27 mEq/L (23-29); Chloride 102 mEq/L (98-107); Glucose 115 mg/dL (70-105); Osmolality,Calculated 288 (280-300); Potassium 4.1 mEq/L (3.5-5.1); Sodium 136 mEq/L (136-145); eGFR For African Americans > 60 (> 60); eGFR For Non-African Americans > 60 (> 60)
[2021-04-17] MEDS: Aspirin Enteric Coated 325 MG Tablet PO SCH (08:20)
[2021-04-17] MEDS: amLODIPine 5 MG TABLET PO SCH (08:20)
[2021-04-17] MEDS: Clindamycin 900 MG/50 ML 900 MG/50 ML IV.SOLN IVPB SCH (08:21)
[2021-04-17] MEDS ORDERED: cefTRIAXone 1,000 MG in 0.9 % Sodium Chloride Mini Bag 100 ML IVP SCH (09:00)
[2021-04-17] MEDS: *HR* OxyCODONE Immed Rel 5 MG TABLET PO PRN (20:39)
[2021-04-17] MEDS: Gabapentin 300 MG CAPSULE PO SCH (20:39)
[2021-04-18 04:37] LABS: Hematocrit 29.5 % (37.5-50.1); Hemoglobin 9.9 g/dL (12.9-16.9); Mean Corpuscular HGB Conc 33.6 g/dL (31.6-35.5); Mean Corpuscular Hemoglobin 32.6 pg (28.0-33.3); Mean Platelet Volume 11.1 fL (9.4-12.4); Platelet Count 182 K/mcL (140-400); Red Blood Count 3.04 M/mcL (4.19-5.50); Red Cell Distribution Width 12.6 % (11.5-14.5); White Blood Count 8.6 K/mcL (4.3-11.1)
[2021-04-18 04:49] LABS: BUN/Creatinine Ratio 39 (6-26); Blood Urea Nitrogen 35 mg/dL (8-23); Calcium 8.5 mg/dL (8.6-10.3); Carbon Dioxide 29 mEq/L (23-29); Chloride 100 mEq/L (98-107); Glucose 117 mg/dL (70-105); Osmolality,Calculated 289 (280-300); Potassium 3.7 mEq/L (3.5-5.1); Sodium 135 mEq/L (136-145); eGFR For African Americans > 60 (> 60); eGFR For Non-African Americans > 60 (> 60)
[2021-04-18 07:26] VITALS: BP 105/75; PULSE 82; TEMP 97.9; O2SAT 91
[2021-04-18] MEDS: amLODIPine 5 MG TABLET PO SCH (08:24)
[2021-04-18] MEDS: Aspirin Enteric Coated 325 MG Tablet PO SCH (08:24)
[2021-04-18] MEDS: *HR* OxyCODONE Immed Rel 5 MG TABLET PO PRN (16:06)
== END 2021-04-18 16:29 | disposition home health service (06) | DRG 481 ==
LOC: EMEROOARM 13:41 → 4WAOSI 13:41 → SUATTDRO 22:43 → 4WAOSI 23:14
PROVIDERS: ADMIT Student in an Organized Health Care Education/Training Program; ATTEND Family Medicine

== ENCOUNTER 2021-12-15 14:53 | Observation (INO) ==
[2021-12-15 16:57] LABS: Basophils % 0.6 %; Eosinophils # 0.1 K/mcL (0.0-0.6); Eosinophils % 1.7 %; Hematocrit 41.1 % (37.5-50.1); Hemoglobin 13.9 g/dL (12.9-16.9); Immature Granulocytes % 0.3 % (0-4); Lymphocytes # 1.4 K/mcL (0.6-4.6); Lymphocytes % 21.4 %; Mean Corpuscular HGB Conc 33.8 g/dL (31.6-35.5); Mean Corpuscular Hemoglobin 32.8 pg (28.0-33.3); Mean Corpuscular Volume 96.9 fL (83.0-100.0); Mean Platelet Volume 10.5 fL (9.4-12.4); Monocytes # 0.8 K/mcL (0.0-1.3); Monocytes % 13.2 %; Platelet Count 220 K/mcL (140-400); Red Blood Count 4.24 M/mcL (4.19-5.50); Red Cell Distribution Width 12.8 % (11.5-14.5); Segmented Neutrophils % 62.8 %; White Blood Count 6.3 K/mcL (4.3-11.1)
[2021-12-15 17:11] LABS: BUN/Creatinine Ratio 31 (6-26); Blood Urea Nitrogen 29 mg/dL (8-23); Calcium 9.8 mg/dL (8.6-10.3); Carbon Dioxide 27 mEq/L (23-29); Chloride 104 mEq/L (98-107); Glucose 88 mg/dL (70-105); Osmolality,Calculated 291 (280-300); Sodium 138 mEq/L (136-145)
[2021-12-15 17:12] LABS: Troponin I < 0.03 ng/mL (< 0.04)
[2021-12-15] MEDS ORDERED: Iopamidol - 370 500 ML MLS IVP ONE ×2 (18:35→18:49)
[2021-12-15] MEDS ORDERED: cefTRIAXone 1,000 MG in Water for inj. (sterile) 10 ML IVP ONE (18:48)
[2021-12-15] MEDS ORDERED: Aspirin 325 MG TABLET PO ONE (23:01)
[2021-12-16] MEDS ORDERED: Naloxone 0.4 MG/ML INJ IVP PRN (00:13)
[2021-12-16] MEDS ORDERED: Acetaminophen 325 MG TABLET PO PRN (00:13)
[2021-12-16] MEDS ORDERED: Ondansetron 4 MG/2 ML VIAL IVP PRN (00:13)
[2021-12-16] MEDS ORDERED: Melatonin 3 MG TABLET PO PRN (00:13)
[2021-12-16] MEDS ORDERED: Gadolinium Contrast Agent (WT Based) IV PRN (00:15)
[2021-12-16] MEDS: *HR* Enoxaparin 40 MG/0.4 ML SYRINGE SQ SCH (05:00)
[2021-12-16] MEDS: Aspirin Enteric Coated 81 MG Tablet PO SCH (08:11)
[2021-12-16] MEDS ORDERED: cephALEXin 500 MG CAPSULE PO SCH (09:00)
[2021-12-16 09:42] LABS: Basophils % 0.4 %; Eosinophils # 0.1 K/mcL (0.0-0.6); Hemoglobin 14.5 g/dL (12.9-16.9); Immature Granulocytes % 0.5 % (0-4); Lymphocytes # 1.2 K/mcL (0.6-4.6); Lymphocytes % 22.1 %; Mean Corpuscular HGB Conc 33.7 g/dL (31.6-35.5); Mean Corpuscular Hemoglobin 32.2 pg (28.0-33.3); Mean Corpuscular Volume 95.3 fL (83.0-100.0); Mean Platelet Volume 10.6 fL (9.4-12.4); Monocytes # 0.5 K/mcL (0.0-1.3); Monocytes % 8.2 %; Neutrophils # 3.7 K/mcL (1.6-8.9); Platelet Count 255 K/mcL (140-400); Red Blood Count 4.51 M/mcL (4.19-5.50); Red Cell Distribution Width 12.7 % (11.5-14.5); Segmented Neutrophils % 66.8 %; White Blood Count 5.5 K/mcL (4.3-11.1)
[2021-12-16 09:54] LABS: INR 1.1; Prothrombin Time 12.6 Seconds (9.4-12.1)
[2021-12-16 10:01] LABS: Calcium 9.7 mg/dL (8.6-10.3); Chol/HDL Ratio 2.8 (0-4.9); Potassium 3.7 mEq/L (3.5-5.1)
[2021-12-16 12:43] LABS: Estimated Average Glucose 137 mg/dl; Hemoglobin A1C 6.4 %
[2021-12-16] MEDS: cephALEXin 500 MG CAPSULE PO SCH ×2 (17:22→21:10)
[2021-12-17 03:05] LABS: Hematocrit 39.7 % (37.5-50.1); Hemoglobin 13.4 g/dL (12.9-16.9); Mean Corpuscular HGB Conc 33.8 g/dL (31.6-35.5); Mean Corpuscular Hemoglobin 32.1 pg (28.0-33.3); Mean Corpuscular Volume 95.2 fL (83.0-100.0); Mean Platelet Volume 10.7 fL (9.4-12.4); Platelet Count 230 K/mcL (140-400); Red Blood Count 4.17 M/mcL (4.19-5.50); Red Cell Distribution Width 12.6 % (11.5-14.5); White Blood Count 4.5 K/mcL (4.3-11.1)
[2021-12-17 03:30] LABS: Calcium 9.5 mg/dL (8.6-10.3); Potassium 3.9 mEq/L (3.5-5.1)
[2021-12-17] MEDS: *HR* Enoxaparin 40 MG/0.4 ML SYRINGE SQ SCH (05:24)
[2021-12-17] MEDS: Aspirin Enteric Coated 81 MG Tablet PO SCH (08:36)
[2021-12-17] MEDS: cephALEXin 500 MG CAPSULE PO SCH ×2 (08:36→13:00)
[2021-12-17 11:35] VITALS: BP 164/99; PULSE 88; TEMP 98.3; O2SAT 97
== END 2021-12-17 13:50 | disposition home or self-care (01) ==
LOC: EMEROOARM 14:53 → 2NENU 14:53 → SUATTDRO 23:14 → 2NENU 12-16 00:15
PROVIDERS: ADMIT Internal Medicine; ATTEND Internal Medicine